=== PATIENT | male | born 1960 | race Caucasian/White ===

== ENCOUNTER → 2020-06-16 11:04 | Outpatient (CLI) | payer MEDICARE, SELFPAY ==
[2020-06-16 11:35] LABS: Absolute Lymphocyte Count 8.11 X10^3/uL (0.83-4.51); Absolute Neutrophil Count 7.3 X10^3/uL (2.0-7.7); Basophil# 0.05 X10^3/uL; Basophil% 0.3 % (0-1); Eosinophil# 0.15 X10^3/uL; Eosinophils% 0.9 % (0-5); Hematocrit 49.3 % (40-54); Lymphocyte # 8.11 X10^3/ul (4.0); Lymphocyte % 47.5 % (19-41); Mean Corp Hgb Conc 32.5 g/dL (32-36); Mean Corpuscular Hgb 30.4 pg (27.0-32.0); Mean Corpuscular Volume 93.7 fL (80-94); Mean Platelet Vol. 10.7 fl (6.2-12.0); Monocyte% 8.2 % (0-10); NRBC Flagged by Analyzer 0 % (0-5); Neutrophil # 7.32 X10^3/uL (2.7-7.7); Neutrophil % 42.9 % (47-70); POSITIVE DIFFERENTIAL YES; Platelet Count 451 K/mm3 (150-450); RBC Distribution Width CV 13.7 % (11.6-14.6); RBC Distribution Width SD 47.2 fl (35.1-43.9); Red Blood Count 5.26 M/mm3 (4.6-6.2); White Blood Count 17.1 K/mm3 (4.4-11.0)
[2020-06-16 11:53] LABS: Microalbumin,Random Urine 88.8 mg/L (NO RANGE EST.); Microalbumin:Creatinine Ratio 113.1 mg/g CRE (<30 mg/g CRE)
[2020-06-16 12:03] LABS: ALB/GLOB Ratio 0.8 RATIO (0.9-2.4); AST(SGOT) 53 U/L (15-37); Alanine Aminotransfer ALT/SGPT 88 U/L (16-61); Albumin, Serum 3.5 g/dL (3.2-5.0); Alkaline Phosphatase 97 U/L (45-117); Anion Gap 7 (5-15); BUN 11 mg/dL (7-18); BUN/Creat Ratio 10.7 RATIO (10-20); Calcium,Total 9.3 mg/dL (8.5-10.1); Chloride 99 mmol/L (98-107); Cholesterol 178 mg/dL (200); Creatinine, Serum 1.03 mg/dL (0.70-1.30); EST Glomerular Filtration Rate 79 mL/min (>60); Est Glom Filt Rate - Afr Amer 95 mL/min (>60); Globulin 4.3 g/dL (2.2-4.2); Glucose 316 mg/dL (74-106); Hemoglobin A1c 11.3 % (3.8-5.6); High Density Lipoprotein 37 mg/dL; Potassium 4.1 mmol/L (3.5-5.1); Protein, Total 7.8 g/dL (6.4-8.2); Sodium Level 133 mmol/L (136-145); Triglycerides 319 mg/dL; Very Low Density Lipoprotein 64 mg/dL (5-40)
[2020-06-16 12:06] LABS: Differential Indicated SCAN CRITERIA MET
[2020-06-16 12:13] LABS: Reactive Lymphocyte 1+
[2020-06-16 13:51] LABS: Vitamin D,25 Hydroxy 45.9 ng/mL
== END ==
PROVIDERS: Visit Provider Nurse Practitioner Family
DX: E11.9 Type 2 diabetes mellitus without complications (principal); I10 Essential (primary) hypertension; E55.9 Vitamin D deficiency, unspecified; E78.5 Hyperlipidemia, unspecified
CPT/HCPCS: 36415; 80053; 80061; 82043; 82306; 82570; 83036; 85025

== ENCOUNTER → 2021-08-05 15:39 | Outpatient (CLI) | payer MEDICARE, SELFPAY ==
--- NOTE | 2021-08-05 15:50 | CT_ITS ---
STUDY: LOW DOSE CT LUNG CANCER SCREENING REASON FOR EXAM: Male, 61 years old. 50-100 pack-year history. RADIATION DOSAGE (If Supplied By Facility): CTDIvol = ( 4.02 ) mGy, DLP = ( 139.44 ) mGycm TECHNIQUE: No contrast was administered. Low dose technique was utilized (average mAS-38 and kVp 120). 1.25 mm axial source images with a slice interval of 1.25-mm were reconstructed in lung windows. 2.5 mm axial source images with a slice interval of 2.5-mm were reconstructed in lung windows. 5.0 mm axial source images with a slice interval of 5.0-mm were reconstructed in soft tissue windows. Nodule measured using lung windows on PACS and/or independent workstation with automated measurement of minimum and maximum diameter. Nodule measurement reported as average diameter rounded to the nearest whole number. Growth is defined as an increase ins size of greater than 1.5 mm. COMPARISON: Chest, 02/13/2014. NODULES: Nodule #: 1 Density: Solid Lung location: Right upper lobe: 1.3 cm from pleura Location in series: Series Number: 2 Image: 99 Size - D1 x D2 mm: 2 x 2 mm: 2 mm average diameter Margin: Smooth Shape: No Calcification: No Fat: No Temporal comparison: None Nodule #: 2 Density: Solid Lung location: Right upper lobe: Pleural-based Location in series: Series Number: 2 Image: 107 Size - D1 x D2 mm: 3 x 3 mm: 3 mm average diameter Margin: Smooth Shape: Rounded Calcification: No Fat: No Temporal comparison: None Nodule #: 3 Density: Solid Lung location: Right lower lobe: Pleural-based Location in series: Series Number: 2 Image: 113 Size - D1 x D2 mm: 3 x 3 mm: 3 mm average diameter Margin: Smooth Shape: Rounded Calcification: No Fat: No Temporal comparison: None Nodule #: 4 Density: Solid Lung location: Right middle lobe: 0.6 cm from pleura Location in series: Series Number: 2 Image: 125 Size - D1 x D2 mm: 3 x 3 mm: 3 mm average diameter Margin: Smooth Shape: Round Calcification: No Fat: No Temporal comparison: None Total lung nodules (excluding granulomas): 4 Emphysema: Minimal emphysematous changes. There is linear scarring in the lingula. Endobronchial lesion: None Aorta: Minimal atherosclerotic changes without aneurysm. Coronary arteries: Marked coronary artery calcifications. Heart: Normal Pulmonary artery: Normal Mediastinal nodes: None Other chest and abdominal findings: Degenerative changes of the thoracic spine. CT/Low Dose CT Lung Screening IMPRESSION: Lung-RADS category 2 - Continue annual screening with LDCT in 12 months. IMPORTANT NOTES FOR USE: ACR Lung-RADS Version 1.1 Assessment Categories Release Date: 2018 Category: Coded 0-4 bases on nodule(s) with highest degree of suspicion. Negative screen is defined as categories 1 and 2; a positive screen is defined as categories 3 and 4. Category 3 and 4A nodules that are unchanged on interval CT should be coded as category 2, and individuals returned to screening in 12 months. Category 4X: Category 3 or 4 nodules with additional imaging findings that increase the suspicion of lung cancer, such as spiculation, GGN that doubles in size in 1 year, enlarged lymph notes, etc. Category Modifiers: S (significant finding unrelated to lung cancer) Electronically Signed: Solomon Florentino DO at 16:47 EDT Tel [phone], Service support ,
== END ==
DX: F17.210 Nicotine dependence, cigarettes, uncomplicated (principal)
CPT/HCPCS: 71271

== ENCOUNTER 2022-06-22 17:10 | Inpatient (IN) | payer MEDICARE, MEDICAID, SELFPAY ==
[2022-06-22] VITALS (12 sets, daily range): BP systolic 136–145; BP diastolic 62–78; PULSE 77–85; RESP 18–26; TEMP 35.8–36.9; O2SAT 88–98; BMI 41.1; BMI 45.2
--- NOTE | 2022-06-22 17:28 | EKG12_ITS ---
Test Reason : CP Blood Pressure : / mmHG Vent. Rate : 074 BPM Atrial Rate : 074 BPM P-R Int : 200 ms QRS Dur : 090 ms QT Int : 402 ms P-R-T Axes : 059 071 040 degrees QTc Int : 446 ms Normal sinus rhythm Normal ECG Confirmed by WAGNER CHOUDHARY, JACK ([id number]), video tape editor JUAN MCKEON ([id number]) on 06/24/2022 1:23:48 PM Referred By: CHAU Confirmed By:DANNA EDWARD MD
--- NOTE | 2022-06-22 17:30 | ED.VIS.CHEST ---
HPI History of Present Illness Chief Complaint: Chest Pain Detail of Chief Complaint: Chest pain and shortness of breath that started last evening. Informant: patient Narrative Narrative: Patient presents the emergency department complaint of chest discomfort that started last evening around midnight. Patient also felt very short of breath. [place] better when he sat up. He denies recent illness of fever or cough. He has not had the COVID-vaccine. Patient does have history of COPD but not on home oxygen. Patient has history of coronary artery disease with 9 cardiac stents. Patient describes a pressure in his chest that goes up the right side of his neck and into his right scapula. Patient thinks the pain is similar to pressure he had when he had his stents. He denies recent travel or surgery. No history of PE or DVT. [facility] Medical History (Updated 06/22/22 @ 19:[address] Silas Sneed, ) Anxiety and depression CAD (coronary artery disease) COPD (chronic obstructive pulmonary disease) Diabetes Hypertension Myocardial infarct, old Nicotine dependence Vitamin D deficiency Home Medications Hydroxyzine [Atarax] 25 mg PO BID PRN PRN Agitation 02/18/14 [History Last Taken 03/25/14] albuterol sulfate 90 mcg/actuation aerosol inhaler (Proventil HFA) 6.7 g IH PRN PRN Wheezing 02/18/14 [History Last Taken 03/25/14] aspirin 81 mg chewable tablet 81 mg PO DAILY@0800 02/18/14 [History Last Taken 03/25/14] atenolol 50 mg tablet 50 mg PO DAILY 02/18/14 [History Last Taken 03/25/14] cyclobenzaprine 10 mg tablet 5 mg PO DAILY 02/18/14 [History Last Taken 03/25/14] docusate sodium 100 mg capsule (DOK) 100 mg PO DAILY 02/18/14 [History Last Taken 03/25/14] hydrochlorothiazide 25 mg tablet 25 mg PO DAILY 02/18/14 [History Last Taken 03/25/14] lisinopril 40 mg tablet 40 mg PO DAILY 02/18/14 [History Last Taken 03/25/14] metformin 500 mg tablet 1,000 mg PO BID 02/18/14 [History Last Taken 03/25/14] nitroglycerin 0.4 mg sublingual tablet 0.4 mg sublingual Q5M PRN Chest Pain 02/18/14 [History Last Taken Unknown] potassium chloride 10 mEq tablet,extended release (Klor-Con) 20 meq PO DAILY 02/18/14 [History Last Taken 03/25/14] pravastatin 20 mg tablet 40 mg PO DAILY 02/18/14 [History Last Taken 03/25/14] quetiapine 300 mg tablet (Seroquel) 300 mg PO DAILY 02/18/14 [History Last Taken 03/25/14] clopidogrel 75 mg tablet 1 tab PO DAILY 07/07/17 [History Last Taken Unknown] budesonide-formoterol HFA 160 mcg-4.5 mcg/actuation aerosol inhaler (Symbicort) 2 puff inhalation BID 06/22/22 [History Last Taken Unknown] cholecalciferol (vitamin D3) 125 mcg (5,000 unit) tablet (Vitamin D3) 50,000 unit PO QWEEK 06/22/22 [History Last Taken Unknown] glimepiride 1 mg tablet 1 mg PO DAILY 06/22/22 [History Last Taken Unknown] Allergy/AdvReac Type Severity Reaction Status Date / Time No Known Allergies Allergy Verified 06/22/22 17:11 Family History (Updated 06/22/22 @ 19:[address] Tanvi Still MD) Father CAD (coronary artery disease) Hypertension Heart disease Myocardial infarction Fatal [place] 70. Brother CAD (coronary artery disease) Hypertension Heart disease Myocardial infarction [place] age 48. Mother Cancer Surgical History (Updated 06/22/22 @ 19:[address] Tanvi Still MD) History of splenectomy S/P urological surgery Stented coronary artery Social History (Updated 06/22/22 @ 19:[address] Tanvi Still MD) household members: none Smoking Status: Current every day smoker tobacco type: cigarettes ROS ROS ED Review of Systems ROS Unobtainable: other Constitutional Constitutional ED: Reports lethargy; Denies chills, fever(s), sweats or weight loss Eyes Eyes: Denies blurry vision, change in vision or diplopia ENT ENT ED: Denies rhinorrhea or sore throat Cardiovascular Cardiovascular: Reports chest pain; Denies orthopnea or racing heartbeat Respiratory/Chest Respiratory/Chest: Reports dyspnea and dyspnea on exertion; Denies cough, orthopnea or sputum Gastrointestinal Gastrointestinal: Denies abdominal pain, diarrhea, nausea or vomiting Genitourinary Genitourinary ED: Denies dysuria, hematuria or urinary frequency Musculoskeletal Musculoskeletal: Denies arthralgias, back pain, myalgias or neck pain Integumentary Denies abscess, Abrasions or rash Neurologic Neurologic: Denies headache(s) or weakness Psychiatric Psychiatric: Denies anxiety, depression or suicidal thoughts Endocrine Endocrinology: Denies polydipsia, polyphagia or polyuria Hematologic/Lymphatic Hematologic/Lymphatic: Denies easy bleeding, easy bruising or lymphadenopathy Allergic/Immunologic Allergic/Immunologic ED: Denies mouth swelling, tongue swelling or urticaria EXAM Physical Exam Const Vital Signs: 06/22/22 17:11 06/22/22 17:14 06/22/22 17:14 Temperature 96.5 F L Temperature Source Temporal Pulse Rate 85 80 Respiratory Rate 20 H 24 H Respiratory Effort Short of Breath Labored Accessory Muscle Use Nasal Flaring Respiratory Pattern Tachypnea Blood Pressure Blood Pressure Mean Pulse Ox 88 92 Oxygen Delivery Method Room Air Nasal Cannula Oxygen Flow Rate (L/min) 3 06/22/22 17:38 06/22/22 17:35 06/22/22 18:19 Temperature 97.5 F L Temperature Source Temporal Pulse Rate 77 82 Respiratory Rate 24 H 25 H Respiratory Effort Respiratory Pattern Normal Blood Pressure 136/62 H Blood Pressure Mean 86 Pulse Ox 92 92 Oxygen Delivery Method Nasal Cannula Room Air Oxygen Flow Rate (L/min) 3 06/22/22 19:03 06/22/22 19:06 Temperature 97.3 F L 97.3 F L Temperature Source Temporal Temporal Pulse Rate 83 84 Respiratory Rate 26 H 20 H Respiratory Effort Respiratory Pattern Blood Pressure 138/62 H 138/62 H Blood Pressure Mean 87 87 Pulse Ox 92 92 Oxygen Delivery Method Nasal Cannula Nasal Cannula Oxygen Flow Rate (L/min) 3 3 Positive well nourished and well developed General Appearance ED: well developed and NAD HEENT Reports TM's clear and moist mucous membranes normocephalic and atraumatic; Negative for trauma or tenderness Tympanic Membrane ED: Yes TM's clear Eyes PERRL and EOMs intact bilaterally General Eye ED: Negative for pale conjunctiva or scleral icterus Neck no lymphadenopathy, supple and no JVD General: Negative for tenderness Chest Wall inspection of chest normal and palpation of chest normal Chest: Negative for tenderness Resp Resp Narrative: Patient with faint expiratory wheezes bilaterally with diminished breath sounds bilaterally. Patient has tachypnea and mild conversational dyspnea. Effort and Inspection: Negative for respiratory distress or pain with movement Auscultation: rhonchi, wheezes and diminished lung sounds Cardio regular rate, regular rhythm, S1 normal heart sound, S2 normal heart sound and no murmurs Peripheral Pulses: pulses 2+ throughout GI normal to inspection, nondistended, normoactive bowel sounds, soft to palpation, non-tender, non-distended and no masses Back/Spine no CVA tenderness and no thoracic nor lumbar tenderness Extremity normal to inspection General Extremety ED: Negative for edema General Extremity: Negative for edema Neuro oriented x3, CN's II-XII intact bilaterally, no sensory deficits noted and gait normal Sensorium / Orientation: awake, alert, oriented to person, oriented to place and oriented to time Motor Exam: strength 5/5 throughout and strength abnormal Psych mental status grossly normal Skin no rashes or lesions noted and no wounds MDM MDM MDM Narrative Medical decision making narrative: IV line Arrival. Patient Was Given DuoNeb Aerosol As Well As Albuterol Aerosols. Patient Was Started on Solu-Medrol IV. Lab Work-Up Showed an Elevated White Count of 16.2. Chemistries Unremarkable. D-Dimer Was Normal. Troponin Was Normal. Chest X-Ray Was Unremarkable. COVID-19 Test Came Back Positive. This Point Patient Will Be Discussed with Hospitalist Evaluate Patient for Admission for COPD Exacerbation, COVID-19 Infection, and Hypoxemia Lab Data Labs: Laboratory Results - last 24 hr 06/22/22 06/22/22 06/22/22 17:15 17:15 17:15 WBC 16.2 H RBC 5.16 Hgb 16.4 Hct 47.6 MCV 92.2 MCH 31.8 MCHC 34.5 RDW Std Deviation 47.1 H RDW Coeff of Trevor 13.8 Plt Count 366 MPV 10.3 Immature Gran % (Auto) 0.300 Neut % (Auto) 50.7 Lymph % (Auto) 36.4 [place] % (Auto) 12.3 H Eos % (Auto) 0.1 Baso % (Auto) 0.2 Absolute Neuts (auto) 8.2 H Absolute Lymphs (auto) 5.89 H Nucleated RBC % 0 Differential Comment SCANNED Diff Path Review May foll D-Dimer Quant (PE/DVT) 0.30 Sodium 134 L Potassium 3.6 Chloride 96 L Carbon Dioxide 31.0 Anion Gap 7 BUN 9 Creatinine 0.93 Estim Creat Clear Calc 92.71 Est GFR (MDRD) Af Amer 107 Est GFR (MDRD) Non-Af 88 BUN/Creatinine Ratio 9.7 L Glucose 110 H Calcium 9.5 Troponin I High Sens 11 Radiography Chest X-Ray - ED: 1 View Diagnostic Testing: Clinical Impression(s) from Imaging Studies Chest X-Ray 06/22/22 18:10 IMPRESSION: Chronic changes at the lung bases without acute cardiopulmonary disease. Electronically Signed: Solomon Florentino DO at 18:25 EDT Reading Location ID and State: [address] [place] [address] Tel [phone], Service support , 1 view chest x-ray obtained interpreted by myself no acute disease process. Radiology in agreement. EKG Initial EKG: Attestation: I personally reviewed and interpreted this EKG as follows: Comments: Sinus rhythm with a ventricular rate of 74 bpm with no acute ST segment changes Discharge Plan Triage Chief Complaint: Chest Pain ED Provider: Silas Sneed Dx/Rx/DC Orders Clinical Impression: COPD exacerbation, Hypoxemia, COVID-19, History of coronary artery disease, Diabetes mellitus Prescriptions: No Action clopidogrel 75 MG tablet 1 tab PO DAILY glimepiride 1 mg Tablet 1 mg PO DAILY budesonide-formoterol [Symbicort] 160-4.5 mcg/actuation Hfa Aerosol Inhaler 2 puff INHALATION BID cholecalciferol (vitamin D3) [Vitamin D3] 125 mcg (5,000 unit) Tablet 50,000 unit PO QWEEK cyclobenzaprine 10 MG tablet 5 mg PO DAILY metformin 500 MG tablet 1,000 mg PO BID quetiapine [Seroquel] 300 MG tablet 300 mg PO DAILY potassium chloride [Klor-Con 10] 10 MEQ tablet extended release 20 meq PO DAILY nitroglycerin 0.4 MG tablet 0.4 mg sublingual Q5M PRN (Reason: Chest Pain) docusate sodium [DOK] 100 MG capsule 100 mg PO DAILY aspirin 81 MG tablet,chewable 81 mg PO DAILY@0800 pravastatin 20 MG tablet 40 mg PO DAILY hydrochlorothiazide 25 MG tablet 25 mg PO DAILY albuterol sulfate [Proventil HFA] 6.7 GM HFA aerosol inhaler 6.7 g IH PRN PRN (Reason: Wheezing) lisinopril 40 MG tablet 40 mg PO DAILY atenolol 50 MG tablet 50 mg PO DAILY Hydroxyzine [Atarax] 25 MG tablet 25 mg PO BID PRN PRN (Reason: Agitation) Primary Care Provider: Medical Brooklynn Cantu Referrals: [facility] Brooklynn Cantu [Primary Care Provider] - Disposition Disposition: Acute Care Hospital [facility]
[2022-06-22] MEDS: Ipratropium/Albuterol Sulfate 3 ML AMPUL.NEB INHALATION ×2 (17:35→21:47)
[2022-06-22] MEDS: Albuterol 2.5 MG/3 ML VIAL.NEB. INHALATION ×2 (17:40→17:48)
[2022-06-22 17:47] LABS: Absolute Lymphocyte Count 5.89 X10^3/uL (0.83-4.51); Absolute Neutrophil Count 8.2 X10^3/uL (2.0-7.7); Basophil# 0.04 X10^3/uL; Basophil% 0.2 % (0-1); Eosinophil# 0.01 X10^3/uL; Eosinophils% 0.1 % (0-5); Hematocrit 47.6 % (40-54); Hemoglobin 16.4 g/dL (13.0-16.5); Lymphocyte # 5.89 X10^3/ul (0.83-4.51); Lymphocyte % 36.4 % (19-41); Mean Corp Hgb Conc 34.5 g/dL (32-36); Mean Corpuscular Hgb 31.8 pg (27.0-32.0); Mean Corpuscular Volume 92.2 fL (80-94); Mean Platelet Vol. 10.3 fl (6.2-12.0); Monocyte# 1.99 X10^3/uL; Monocyte% 12.3 % (0-10); NRBC Flagged by Analyzer 0 % (0-5); Neutrophil # 8.21 X10^3/uL (2.7-7.7); Neutrophil % 50.7 % (47-70); POSITIVE DIFFERENTIAL YES; POSITIVE MORPHOLOGY YES; Platelet Count 366 K/mm3 (150-450); RBC Distribution Width CV 13.8 % (11.6-14.6); RBC Distribution Width SD 47.1 fl (35.1-43.9); Red Blood Count 5.16 M/mm3 (4.6-6.2); White Blood Count 16.2 K/mm3 (4.4-11.0)
[2022-06-22] MEDS: Aspirin 81 MG TAB.CHEW 324 MG PO (17:57)
[2022-06-22 17:58] LABS: Differential Indicated SCAN CRITERIA MET
[2022-06-22] MEDS: MethylPREDNISolone 125 MG/2 ML Vial IV (17:59)
[2022-06-22] MEDS: 0.9% Normal Saline 1,000 ML 150 ML IV (17:59)
[2022-06-22 18:06] LABS: Anion Gap 7 (5-15); BUN 9 mg/dL (7-18); BUN/Creat Ratio 9.7 RATIO (10-20); Calcium,Total 9.5 mg/dL (8.5-10.1); Chloride 96 mmol/L (98-107); Creatinine, Serum 0.93 mg/dL (0.70-1.30); EST Glomerular Filtration Rate 88 mL/min (>60); Est Glom Filt Rate - Afr Amer 107 mL/min (>60); Estimated Creatinine Clearance 92.71 ml/min; Glucose 110 mg/dL (74-106); Potassium 3.6 mmol/L (3.5-5.1); Sodium Level 134 mmol/L (136-145); Troponin-I HS (w/2H Reflex) 11 pg/mL (3.0-78.0)
--- NOTE | 2022-06-22 18:10 | RAD_ITS ---
STUDY: X-RAY CHEST REASON FOR EXAM: Male, 62 years old. Chest pain. TECHNIQUE: Single AP portable view of the chest. COMPARISON: 02/13/2014. CT of the chest, 08/05/2021. FINDINGS: The lungs are well expanded. There is chronic interstitial coarsening with stable scarring/atelectasis at the lung bases. No new mass or infiltrate. There is no demonstrated pleural abnormality. Normal size heart. Normal mediastinum and mae. Normal visualized pulmonary arteries. There is atherosclerotic calcification of the aortic arch with tortuosity. Mild degenerative changes dextroscoliosis of the thoracic spine. Normal visualized ribs, clavicles, and shoulders. There is no demonstrated abnormality of the visualized soft tissue structures of the upper abdomen. RAD/Chest 1 View (Portable) IMPRESSION: Chronic changes at the lung bases without acute cardiopulmonary disease. Electronically Signed: Solomon Florentino DO at 18:25 EDT ,
[2022-06-22 18:20] LABS: Differential Comment SCANNED
--- NOTE | 2022-06-22 19:08 | PCM.HP.STD ---
HPI - General General Date of Admission: 06/22/22 Date of Service: 06/22/22 Chief Complaint: Chest pain HPI Narrative The patient is a 62 y/o M w/ PMHx: Diabetes mellitus type II, Morbid obesity, COPD, Tobacco use, HTN, HLD, Anxiety and Depression, CAD s/p PCI proximal LAD and distal RCA 10/2011 who presents to the [facility] ED on 06/22/22 with history of onset chest discomfort evening prior to proximately midnight as well as progressively worsening dyspnea with some improvement upon awakening with no recent illness, fever, cough however he had recurrent chest discomfort described as a pressure on the right side of his chest with radiation up to his neck and his right scapula which is reportedly similar to when he had his stents remotely prompting eventual ED evaluation. Patient does not routinely use oxygen therapy. He is not vaccinated against COVID nor is any of his immediate family. He denies anyone specifically being ill around him. He notes only mild cough with no productive sputum and dyspnea sensation as well as wheezing. He denies any sore throat, headache, nausea, emesis, abdominal pain or cramping, diarrhea. He did report that when he had the chest discomfort it was rated 10 out of 10 in severity but alleviated quickly and currently denies any chest pain upon evaluation. Work-up in the ED included T96.5, heart rate 85, BP 136/62, respiratory rate 20-26, initially 88% on room air eventually requiring 3 L nasal cannula to maintain 92% oxygenation, CBC with WC 16.2, hemoglobin 16.4, platelet 366 with left shift and lymphocytosis, D-dimer 0.30, BMP with sodium 134, chloride 96, glucose 110, troponin 11, chest x-ray with chronic changes at the lung bases with no acute cardiopulmonary findings otherwise, rapid SARS COVID antigen positive, EKG with sinus rhythm with no acute evidence of ischemia. In the ED patient administered aspirin 324 mg p.o. x1, Decadron 6 mg p.o. x1, DuoNeb therapy as well as nitroglycerin and normal saline. [facility] Medical History (Updated 06/22/22 @ 19:[address] Tanvi Still MD) Anxiety and depression CAD (coronary artery disease) COPD (chronic obstructive pulmonary disease) Diabetes mellitus, type 2 Hypertension Myocardial infarct, old Nicotine dependence Vitamin D deficiency Home Medications albuterol sulfate 90 mcg/actuation aerosol inhaler (Proventil HFA) 6.7 g IH PRN PRN Wheezing 02/18/14 [History Last Taken 06/22/22] aspirin 81 mg chewable tablet 81 mg PO DAILY@0800 HEALTH 02/18/14 [History Last Taken 06/22/22] atenolol 50 mg tablet 50 mg PO BID BP 02/18/14 [History Last Taken 06/22/22] docusate sodium 100 mg capsule (DOK) 100 mg PO DAILY PRN Constipation 02/18/14 [History Last Taken 03/25/14] hydrochlorothiazide 25 mg tablet 25 mg PO DAILY FLUID 02/18/14 [History Last Taken 06/22/22] lisinopril 40 mg tablet 40 mg PO DAILY BP 02/18/14 [History Last Taken 06/21/22] nitroglycerin 0.4 mg sublingual tablet 0.4 mg sublingual Q5M PRN Chest Pain 02/18/14 [History Last Taken 06/22/22] potassium chloride 10 mEq tablet,extended release (Klor-Con) 20 meq PO DAILY SUPPLEMENT 02/18/14 [History Last Taken 06/22/22] quetiapine 300 mg tablet (Seroquel) 300 mg PO QHS MOOD 02/18/14 [History Last Taken 06/21/22] clopidogrel 75 mg tablet 75 mg PO DAILY BLOOD THINNER 07/07/17 [History Last Taken 06/22/22] budesonide-formoterol HFA 160 mcg-4.5 mcg/actuation aerosol inhaler (Symbicort) 2 puff inhalation BID COPD 06/22/22 [History Last Taken 06/22/22] cholecalciferol (vitamin D3) 125 mcg (5,000 unit) tablet (Vitamin D3) 50,000 unit PO SA SUPPLEMENT 06/22/22 [History Last Taken 06/19/22] cyclobenzaprine 5 mg tablet 5 mg PO DAILY PRN Spasms 06/22/22 [History Last Taken Unknown] glimepiride 1 mg tablet 1 mg PO DAILY DM 06/22/22 [History Last Taken 06/22/22] hydroxyzine HCl 25 mg tablet 25 mg PO QHS SLEEP 06/22/22 [History Last Taken 06/21/22] metformin 1,000 mg tablet 1,000 mg PO BID DM 06/22/22 [History Last Taken 06/22/22] pravastatin 40 mg tablet 40 mg PO QHS CHOLESTEROL 06/22/22 [History Last Taken 06/21/22] Allergy/AdvReac Type Severity Reaction Status Date / Time No Known Allergies Allergy Verified 06/22/22 17:11 Family History (Updated 06/22/22 @ 19:[address] Tanvi Still MD) Father CAD (coronary artery disease) Hypertension Heart disease Myocardial infarction Fatal CA age 70. Brother CAD (coronary artery disease) Hypertension Heart disease Myocardial infarction CA age 48. Mother Cancer Surgical History (Updated 06/22/22 @ 19:[address] Tanvi Still MD) History of splenectomy S/P urological surgery Stented coronary artery Social History (Updated 06/22/22 @ 20:[address] Tanvi Still MD) household members: none Smoking Status: Current every day smoker tobacco type: cigarettes Smoking packs per day: 0.5 Smoking cigarettes per day: 10.0 Years smoked: 50 Smoking pack-years: 25.00 alcohol intake: never substance use type: does not use ROS ROS Narrative Admission Review of Systems: CONSTITUTIONAL: No weight loss, fever, chills, + weakness or fatigue. HEENT: Eyes: No visual loss, blurred vision, double vision or yellow sclerae. Ears, Nose, Throat: No hearing loss, sneezing, congestion, runny nose or sore throat. SKIN: No rash or itching, lesions, wounds. CARDIOVASCULAR: + chest pain, chest pressure or chest discomfort, No palpitations, edema, orthopnea, syncopal events. RESPIRATORY: + shortness of breath, cough without marked sputum, wheezing, No hemoptysis. GASTROINTESTINAL: No anorexia, nausea, vomiting or diarrhea, abdominal pain, melena, BRBPR. GENITOURINARY: No dysuria, frequency, urgency or retention. NEUROLOGICAL: No headache, dizziness, syncope, paralysis, ataxia, numbness or tingling in the extremities, focal weakness, change in bowel or bladder control, seizure. MUSCULOSKELETAL: + muscle, back pain, joint pain or stiffness. HEMATOLOGIC: + anemia, bleeding or bruising. LYMPHATICS: No enlarged nodes. No history of splenectomy. PSYCHIATRIC: + history of depression or anxiety. ENDOCRINOLOGIC: No reports of sweating, cold or heat intolerance. No polyuria or polydipsia. ALLERGIES: No history of asthma, hives, eczema or rhinitis. Vital Signs Vital Signs Vital Signs: 06/22/22 17:11 06/22/22 17:14 06/22/22 17:14 Temperature 96.5 F L Temperature Source Temporal Pulse Rate 85 80 Respiratory Rate 20 H 24 H Respiratory Effort Short of Breath Labored Accessory Muscle Use Nasal Flaring Respiratory Pattern Tachypnea Blood Pressure Blood Pressure Mean Pulse Ox 88 92 Oxygen Delivery Method Room Air Nasal Cannula Oxygen Flow Rate (L/min) 3 06/22/22 17:38 06/22/22 17:35 06/22/22 18:19 Temperature 97.5 F L Temperature Source Temporal Pulse Rate 77 82 Respiratory Rate 24 H 25 H Respiratory Effort Respiratory Pattern Normal Blood Pressure 136/62 H Blood Pressure Mean 86 Pulse Ox 92 92 Oxygen Delivery Method Nasal Cannula Room Air Oxygen Flow Rate (L/min) 3 06/22/22 19:03 06/22/22 19:06 Temperature 97.3 F L 97.3 F L Temperature Source Temporal Temporal Pulse Rate 83 84 Respiratory Rate 26 H 20 H Respiratory Effort Respiratory Pattern Blood Pressure 138/62 H 138/62 H Blood Pressure Mean 87 87 Pulse Ox 92 92 Oxygen Delivery Method Nasal Cannula Nasal Cannula Oxygen Flow Rate (L/min) 3 3 Weight Weight: 303 lb 9.224 oz Body Mass Index (BMI) 41.1 Physical Exam Narrative Physical Examination: General: Awake, alert, oriented x 3 and cooperative, seated upright in the ED bed, fatigued appearing otherwise no acute distress Skin: Normal color, normal turgor, no icterus, no cyanosis. HEENT: AT/NC, EOMI, PERRLA, mildly dry MM, no carotid bruits or JVD noted. Lungs: Significantly diffusely diminished, tight, expiratory wheezing, mildly increased respiratory rate but no distress, no rales or rhonchi. Heart: Regular rate and rhythm; no gallop, rub audible. Abdomen: Soft, morbidly obese, NTTP, ND, distant normal BS, no HSM. Extremities: No cyanosis, clubbing, or edema. Neurological: Patient awake, alert, oriented as noted, cognitive function intact; pupils equally reactive to light and accommodation, cranial nerves II-XII grossly normal, moving all 4 extremities, no focal deficits, strength moderately to severely global decrease secondary to acute presentation. Psychiatric: Affect appears fatigued otherwise normal, no acute evidence of depressive or anxiety feelings. Results Lab / Micro Data Result Diagrams: 06/22/22 17:15 06/22/22 17:15 Labs: Laboratory Results - last 24 hr 06/22/22 17:15: WBC 16.2 H, RBC 5.16, Hgb 16.4, Hct 47.6, MCV 92.2, MCH 31.8, MCHC 34.5, RDW Std Deviation 47.1 H, RDW Coeff of Trevor 13.8, Plt Count 366, MPV 10.3, Immature Gran % (Auto) 0.300, Neut % (Auto) 50.7, Lymph % (Auto) 36.4, Peach % (Auto) 12.3 H, Eos % (Auto) 0.1, Baso % (Auto) 0.2, Absolute Neuts (auto) 8.2 H, Absolute Lymphs (auto) 5.89 H, Nucleated RBC % 0, Differential Comment SCANNED, Diff Path Review February06/22/22 17:15: D-Dimer Quant (PE/DVT) 0.30 06/22/22 17:15: Sodium 134 L, Potassium 3.6, Chloride 96 L, Carbon Dioxide 31.0, Anion Gap 7, BUN 9, Creatinine 0.93, Estim Creat Clear Calc 92.71, Est GFR (MDRD) Af Amer 107, Est GFR (MDRD) Non-Af 88, BUN/Creatinine Ratio 9.7 L, Glucose 110 H, Calcium 9.5, Troponin I High Sens 11 Micro: Microbiology 06/22/22 18:10 Nasal Secretion SARS-CoV-2 & FLU Antigen (Rapid) - Final SARS-CoV-2 (COVID 19) Radiology Impression Chest X-Ray 06/22/22 18:10 IMPRESSION: Chronic changes at the lung bases without acute cardiopulmonary disease. Electronically Signed: Solomon Florentino DO at 18:25 EDT Reading Location ID and State: [facility] / [place] Tel [phone], Service support , Assessment & Plan Assessment/Plan (1) COPD exacerbation: (2) Hypoxemia: (3) COVID-19: PLAN: Plan The patient is a 62 y/o M w/ PMHx: Diabetes mellitus type II, Morbid obesity, COPD, Tobacco use, HTN, HLD, Anxiety and Depression, CAD s/p PCI proximal LAD and distal RCA 10/2011 who presents to the [facility] ED on 06/22/22 with history of onset chest discomfort evening prior to proximately midnight as well as progressively worsening dyspnea with some improvement upon awakening with no recent illness, fever, cough however he had recurrent chest discomfort described as a pressure on the right side of his chest with radiation up to his neck and his right scapula which is reportedly similar to when he had his stents remotely prompting eventual ED evaluation. #1. Acute on Chronic COPD Exacerbation secondary to concurrent Acute Viral Syndrome, COVID-19 w/ associated Acute Hypoxia: Will admit to the PCU, maintain on COVID precautions, will maintain on oxygen with wean as tolerated to room air, PRN albuterol, HOB, IS parameters w/ pending sputum cultures, respiratory viral panel and urine antigens, will obtain procalcitonin, CRP, CPK, Ferritin, LDH, cycle troponin given history and obtain BNP, continue supportive care including q 2 hour turning including prone given no prone bed availability and judicious hydration, closely monitor for worsening status for ARDS and multiorgan failure, will initiate and continue IV decadron x 10 doses, given presentation will also initiate IV remdesivir but defer to discretion of Infectious disease. If respiratory status worsens and patient requires airvo or BIPAP transition will initiate barcitinib regimen additionally with ID involvement. #2. Chest Pain: EKG in ED with sinus rhythm with no acute evidence of skin, CXR w/ chronic changes with no acute cardiopulmonary, initial trop [address] on a monitored bed to assure no acute myocardial infarction with serial cardiac enzymes and EKGs. Likely associate with acute presentation but to be cautious we will continue closely monitor. FLP in AM. Magnesium level requested. ASA, NG, morphine. #3. Diabetes mellitus type II: Hold oral home regimen, ADA diet, accu checks w/ ISS. #4. CAD: Status post PCI proximal LAD and distal RCA 10/2011, continue aspirin, Plavix, atenolol, lisinopril, statin therapy with hold parameters as needed. #5. Hypertension: Continue home regimen including lisinopril, atenolol, hydrochlorothiazide with hold parameters as needed, PRN hydralazine. #6. Hyperlipidemia: Continue home statin regimen. AM FLP. #7. Tobacco Abuse: Encouraged cessation, inpatient consultation per RT, NR if desired. #8. Anxiety and depression: We will continue patient home Seroquel and hydroxyzine regimen. #9. Morbid Obesity: Weight loss and lifestyle changes encouraged, nutrition consulted. #10. DVT prophylaxis: SCDs, Lovenox. #11. CODE status: Patient does not have healthcare power of tax associate attorney nor living will in place. Discussed CODE status at length including difference between FULL code, DNR-CCA and DNR-CC status. Following discussions about the differences in these status, requested Full Code status. Amenable to antiviral regimen. Advanced Care Planning Face to Face Time: 16 minutes. Charges/Coding Visit Charges Inpatient E&M: 69891 Init Hosp L3 Procedures Hospitalists Procedures: 03854 Advncd Care Plan 30 Min
[2022-06-22 19:43] LABS: Reflex Troponin-HS? (from REC) Y
[2022-06-22 19:49] LABS: BNP,B-Type NATRIURETIC PEPTIDE 11.4 pg/mL (0-100)
[2022-06-22 19:55] LABS: AST(SGOT) 46 U/L (15-37); Alanine Aminotransfer ALT/SGPT 89 U/L (16-61); Albumin, Serum 3.6 g/dL (3.2-5.0); Alkaline Phosphatase 46 U/L (45-117); Bilirubin, Direct 0.35 mg/dL (0.00-0.30); Ferritin 254 ng/mL (26-388); Globulin 4.7 g/dL (2.2-4.2); LDH 252 U/L (87-241); Magnesium 1.7 mg/dL (1.6-2.6); Protein, Total 8.3 g/dL (6.4-8.2)
[2022-06-22 20:44] LABS: Troponin-I HS 10 pg/mL (3.0-78.0)
[2022-06-22] MEDS: 0.9% Normal Saline 1,000 ML 100 ML IV (22:34)
[2022-06-22] MEDS: dexAMETHasone 10 MG/ML Vial 6 MG IV (22:35)
[2022-06-22] MEDS: Enoxaparin 40 MG/0.4 ML Syringe SC (22:35)
[2022-06-22] MEDS: Pravastatin 40 MG Tablet PO (22:36)
[2022-06-22] MEDS: Insulin Lispro 100 UNIT/ML INSULN.PEN SC (22:48)
[2022-06-22 23:15] LABS: Bedside Glucose 155 mg/dL (74-106)
[2022-06-23] VITALS (14 sets, daily range): BP systolic 109–151; BP diastolic 71–82; PULSE 71–90; RESP 16–22; TEMP 36.4–36.9; O2SAT 92–96
[2022-06-23 01:44] LABS: Absolute Lymphocyte Count 2.11 X10^3/uL (0.83-4.51); Absolute Neutrophil Count 7.3 X10^3/uL (2.0-7.7); Basophil# 0.02 X10^3/uL; Basophil% 0.2 % (0-1); Hematocrit 44.6 % (40-54); Hemoglobin 15.1 g/dL (13.0-16.5); Lymphocyte # 2.11 X10^3/ul (0.83-4.51); Lymphocyte % 21.6 % (19-41); Mean Corp Hgb Conc 33.9 g/dL (32-36); Mean Corpuscular Hgb 30.9 pg (27.0-32.0); Mean Corpuscular Volume 91.2 fL (80-94); Mean Platelet Vol. 10.6 fl (6.2-12.0); Monocyte# 0.28 X10^3/uL; Monocyte% 2.9 % (0-10); NRBC Flagged by Analyzer 0 % (0-5); Neutrophil # 7.34 X10^3/uL (2.7-7.7); Neutrophil % 74.9 % (47-70); Platelet Count 326 K/mm3 (150-450); RBC Distribution Width CV 13.8 % (11.6-14.6); RBC Distribution Width SD 46.5 fl (35.1-43.9); Red Blood Count 4.89 M/mm3 (4.6-6.2); White Blood Count 9.8 K/mm3 (4.4-11.0)
[2022-06-23 02:40] LABS: Troponin-I HS 8 pg/mL (3.0-78.0)
[2022-06-23 02:55] LABS: ALB/GLOB Ratio 0.7 RATIO (0.9-2.4); AST(SGOT) 34 U/L (15-37); Alanine Aminotransfer ALT/SGPT 73 U/L (16-61); Alkaline Phosphatase 42 U/L (45-117); Anion Gap 9 (5-15); BUN 9 mg/dL (7-18); BUN/Creat Ratio 12.1 RATIO (10-20); Calcium,Total 8.6 mg/dL (8.5-10.1); Chloride 100 mmol/L (98-107); Cholesterol 107 mg/dL (200); Creatinine, Serum 0.74 mg/dL (0.70-1.30); EST Glomerular Filtration Rate 114 mL/min (>60); Est Glom Filt Rate - Afr Amer 138 mL/min (>60); Globulin 4.4 g/dL (2.2-4.2); Glucose 200 mg/dL (74-106); High Density Lipoprotein 32 mg/dL; Potassium 3.6 mmol/L (3.5-5.1); Protein, Total 7.4 g/dL (6.4-8.2); Sodium Level 135 mmol/L (136-145); Triglycerides 66 mg/dL; Very Low Density Lipoprotein 13 mg/dL (5-40)
[2022-06-23] MEDS: Insulin Lispro 100 UNIT/ML INSULN.PEN SC ×3 (06:58→16:49)
[2022-06-23 07:20] LABS: Bedside Glucose 161 mg/dL (74-106)
[2022-06-23] MEDS: Ipratropium/Albuterol Sulfate 3 ML AMPUL.NEB INHALATION ×4 (07:38→20:17)
[2022-06-23] MEDS: Aspirin 81 MG TAB.CHEW PO (08:35)
[2022-06-23] MEDS: cycloBENZAPRine HCl 5 MG TABLET PO (08:36)
[2022-06-23] MEDS: hydroCHLOROthiazide 25 MG Tablet PO (08:36)
[2022-06-23] MEDS: Potassium Chloride Oral Tablet 20 MEQ PO (08:36)
[2022-06-23] MEDS: Atenolol 50 MG Tablet PO (08:36)
[2022-06-23] MEDS: Lisinopril 40 MG Tablet PO (08:37)
[2022-06-23] MEDS: QUEtiapine 100 MG Tablet 300 MG PO (08:37)
[2022-06-23] MEDS: dexAMETHasone 10 MG/ML Vial 6 MG IV (08:37)
[2022-06-23] MEDS: Clopidogrel Bisulfate 75 MG Tablet PO (08:37)
[2022-06-23] MEDS: 0.9% Saline Lock 10 ML Syringe IV ×2 (08:38→16:51)
[2022-06-23] MEDS: Enoxaparin 40 MG/0.4 ML Syringe SC ×2 (08:46→22:04)
--- NOTE | 2022-06-23 12:50 | CASEMGMT ---
RN PRASANTH called patient in room for initial transition planning/care coordination assessment. RN PRASANTH introduced self and role at [facility]. Patient alert and oriented. Patient willing to participate in assessment and is able to answer all questions appropriately. Care providers, pharmacy, and demographics verified. Patient wishes to discharge home, denies need for home health at this time. Patient states he has no further needs or concerns at this time. CM to follow for discharge planning needs that may arise. PCP: Brooklynn Michel Specialists: none Preferred Pharmacy: [facility] Insurance: [facility] Prescription Benefit: yes Living Will/HPOA: none LNOK: son, mother Living Arrangements: Patient states he lives alone in a first floor apartment with no steps to enter. Patient states he is independent at home. Transportation: self, son DME/HHC: Patient denies DME in the home. Patient denies previous HHC or SNF. Will monitor patient for oxygen at discharge. No preferences on DME. Disposition Plan: Patient to discharge home with family support and follow-u plans in place. Leelee GAYTAN, RN, CM
[2022-06-23 13:10] LABS: Bedside Glucose 193 mg/dL (74-106)
--- NOTE | 2022-06-23 13:38 | PCM.PN.HOSP ---
Subjective Subjective States approximately 50 to 60% better since he came in yesterday. He indicates he is finally been able to eat. He reports that he is having more fatigue than typical and sleeping a lot today. Chest pain has resolved. Nausea has resolved. Objective Data Objective Data Vital Signs: Vital Signs Temp Pulse Resp BP Pulse Ox O2 Del Method O2 Flow Rate 98.5 F 89 16 151/73 H 92 Nasal Cannula 3 06/23/22 08:35 06/23/22 11:17 06/23/22 11:17 06/23/22 08:35 06/23/22 08:35 06/23/22 13:29 06/23/22 13:29 Oxygen Flow Rate (L/min) 3 Oxygen Delivery Method Nasal Cannula Weight: 135 kg Body Mass Index (BMI) 45.2 Intake & Output: Intake and Output for Last 24 Hours 06/21/22 06/22/22 06/23/22 23:59 23:59 23:59 Intake Total 1065 / 1465 1974 / 1974 Output Total 500 / 500 Balance 1065 / 965 1475 / 1475 Lab / Micro Data Result Diagrams: 06/23/22 01:35 06/23/22 01:35 Labs: Laboratory Results - last 24 hr 06/22/22 17:15: WBC 16.2 H, RBC 5.16, Hgb 16.4, Hct 47.6, MCV 92.2, MCH 31.8, MCHC 34.5, RDW Std Deviation 47.1 H, RDW Coeff of Trevor 13.8, Plt Count 366, MPV 10.3, Immature Gran % (Auto) 0.300, Neut % (Auto) 50.7, Lymph % (Auto) 36.4, Carson % (Auto) 12.3 H, Eos % (Auto) 0.1, Baso % (Auto) 0.2, Absolute Neuts (auto) 8.2 H, Absolute Lymphs (auto) 5.89 H, Nucleated RBC % 0, Differential Comment SCANNED, Diff Path Review February06/22/22 17:15: D-Dimer Quant (PE/DVT) 0.30 06/22/22 17:15: Sodium 134 L, Potassium 3.6, Chloride 96 L, Carbon Dioxide 31.0, Anion Gap 7, BUN 9, Creatinine 0.93, Estim Creat Clear Calc 92.71, Est GFR (MDRD) Af Amer 107, Est GFR (MDRD) Non-Af 88, BUN/Creatinine Ratio 9.7 L, Glucose 110 H, Calcium 9.5, Troponin I High Sens 11 06/22/22 17:15: B-Natriuretic Peptide 11.4 06/22/22 17:15: Magnesium 1.7, Ferritin 254, Total Bilirubin 0.90, Direct Bilirubin 0.35 H, AST 46 H, ALT 89 H, Alkaline Phosphatase 46, Lactate Dehydrogenase 252 H, C-React Prot Ext Range 44.70 H, Total Protein 8.3 H, Albumin 3.6, Globulin 4.7 H 06/22/22 17:15: Procalcitonin 0.10 H 06/22/22 20:20: Troponin I High Sens 10 06/22/22 22:43: POC Glucose 155 H 06/23/22 01:35: WBC 9.8, RBC 4.89, Hgb 15.1, Hct 44.6, MCV 91.2, MCH 30.9, MCHC 33.9, RDW Std Deviation 46.5 H, RDW Coeff of Trevor 13.8, Plt Count 326, MPV 10.6, Immature Gran % (Auto) 0.400, Neut % (Auto) 74.9 H, Lymph % (Auto) 21.6, Carson % (Auto) 2.9, Eos % (Auto) 0.0, Baso % (Auto) 0.2, Absolute Neuts (auto) 7.3, Absolute Lymphs (auto) 2.11, Nucleated RBC % 0 06/23/22 01:35: Sodium 135 L, Potassium 3.6, Chloride 100, Carbon Dioxide 26.0, Anion Gap 9, BUN 9, Creatinine 0.74, Estim Creat Clear Calc 102.70, Est GFR (MDRD) Af Amer 138, Est GFR (MDRD) Non-Af 114, BUN/Creatinine Ratio 12.1, Glucose 200 H, Calcium 8.6, Total Bilirubin 0.40, AST 34, ALT 73 H, Alkaline Phosphatase 42 L, Total Protein 7.4, Albumin 3.0 L, Globulin 4.4 H, Albumin/Globulin Ratio 0.7 L, Triglycerides 66, Cholesterol 107, LDL Cholesterol 62, VLDL Cholesterol 13, HDL Cholesterol 32 L 06/23/22 01:35: Troponin I High Sens 8 06/23/22 06:57: POC Glucose 161 H 06/23/22 11:20: POC Glucose 193 H Micro: Microbiology 06/23/22 00:00 Urine, Clean Catch Streptococcus pneumoniae Antigen (M - Final 06/23/22 00:00 Urine, Clean Catch Legionella Antigen - Final 06/22/22 21:55 Mucosa - Nasopharyngeal Respiratory Panel (PCR) - Final 06/22/22 18:10 Nasal Secretion SARS-CoV-2 & FLU Antigen (Rapid) - Final SARS-CoV-2 (COVID 19) Radiography Diagnostic Testing: Radiology Impression Chest X-Ray 06/22/22 18:10 IMPRESSION: Chronic changes at the lung bases without acute cardiopulmonary disease. Electronically Signed: Solomon Florentino DO at 18:25 EDT Reading Location ID and State: [facility] / [place] Tel [phone], Service support , Physical Exam Const alert, oriented x3, no apparent distress and well nourished Constitutional Narrative: Morbidly obese, white upper middle-aged male sitting in bed watching television, appears comfortable, nontoxic currently on 3 L nasal cannula HEENT head/scalp atraumatic HEENT Narrative: Because membranes are dry, dentition is fair, no thrush, Mallampati 3 Mouth: dry mucous membranes Resp normal respiratory effort, no retractions and no use of accessory muscles Resp Narrative: Scattered end expiratory wheezing with few scattered crackles Auscultation: crackles and wheezes; Negative for rhonchi Cardio regular rate, regular rhythm, S1 normal heart sound, S2 normal heart sound, no murmurs, no rub, no gallops, no clicks and no JVD GI normal to inspection, nondistended, normoactive bowel sounds, soft to palpation and non-tender Extremity no clubbing, cyanosis or edema Extremity Narrative: 2+ pedal pulses Neuro oriented x3, moves all extremities and no focal motor deficits Speech: speech normal Assessment & Plan Assessment/Plan (1) COPD exacerbation: (2) Hypoxemia: (3) COVID-19: PLAN: Plan Acute COVID-19 infection -Positive test in the emergency department on admission -Not back to needed -Continue Decadron day 2 of 10 -Continue remdesivir day 2 of 5 -Supportive care -Patient is currently on 3 L nasal cannula--> wean as able -Chest x-ray on admission is overall unremarkable -We will utilize diuretics as needed -Avoid aggressive hydration -CRP elevated to 44.7/LDH 252 -Procalcitonin is 0.10 Acute exacerbation of COPD -Likely related to acute COVID-19 infection -Not a candidate for any biologic therapy -Continue steroids with Decadron -Aggressive pulmonary toilet -I-S/Pep therapy -Respiratory panel is negative -Strep pneumo and Legionella antigens are negative -Currently on 3 L nasal cannula with an SPO2 of 92 to 96% -At baseline is not on any supplemental oxygen Chest pain -EKG unremarkable -Cardiac enzymes cycled and negative -Cholesterol obtained and control is good with an LDL of 62 and a total cholesterol of 106 -Likely not cardiac in nature and more related to COPD exacerbation/COVID-19 infection DM-2 -Anticipate steroid-induced hyperglycemia -Hold home oral agents in Clement right metformin neck-sliding scale insulin -May need scheduled Lantus depending on blood sugar is -Continue to monitor BGT's -Diabetic diet CAD/HTN/HPL -History of PCI to proximal LAD and distal RCA in 2011 -Continue aspirin -Continue Plavix -Continue atenolol -Continue lisinopril -Continue statin Tobacco abuse -Encourage cessation -Nicotine patch available if patient desires Anxiety/depression -Continue home Seroquel -Continue home nocturnal hydroxyzine Morbid obesity -Recommend weight loss -BMI 45.3 -Complicates treatment, prognosis, outcomes DVT prophylaxis -Lovenox Next-SCDs CODE STATUS -Full code as verified on admission Charges/Coding Visit Charges Inpatient E&M: 87191 Subs Hosp L2
[2022-06-23] MEDS: Furosemide 40 MG/4 ML Vial IV (16:51)
[2022-06-23 17:46] LABS: Bedside Glucose 186 mg/dL (74-106)
[2022-06-23] MEDS: Pravastatin 40 MG Tablet PO (22:04)
[2022-06-23 22:35] LABS: Bedside Glucose 149 mg/dL (74-106)
[2022-06-24] VITALS (9 sets, daily range): BP systolic 145–147; BP diastolic 78; PULSE 66–89; RESP 18–32; TEMP 36.6; O2SAT 85–92
[2022-06-24 06:55] LABS: Absolute Lymphocyte Count 6.36 X10^3/uL (0.83-4.51); Basophil# 0.03 X10^3/uL; Basophil% 0.1 % (0-1); Eosinophil# 0.01 X10^3/uL; Hematocrit 45.4 % (40-54); Hemoglobin 15.1 g/dL (13.0-16.5); Lymphocyte # 6.36 X10^3/ul (0.83-4.51); Lymphocyte % 30.4 % (19-41); Mean Corp Hgb Conc 33.3 g/dL (32-36); Mean Corpuscular Hgb 30.6 pg (27.0-32.0); Mean Corpuscular Volume 91.9 fL (80-94); Mean Platelet Vol. 10.4 fl (6.2-12.0); Monocyte# 2.37 X10^3/uL; Monocyte% 11.3 % (0-10); NRBC Flagged by Analyzer 0 % (0-5); Neutrophil # 12.02 X10^3/uL (2.7-7.7); Neutrophil % 57.7 % (47-70); POSITIVE DIFFERENTIAL YES; POSITIVE MORPHOLOGY YES; Platelet Count 453 K/mm3 (150-450); RBC Distribution Width CV 13.9 % (11.6-14.6); RBC Distribution Width SD 46.5 fl (35.1-43.9); Red Blood Count 4.94 M/mm3 (4.6-6.2); White Blood Count 20.9 K/mm3 (4.4-11.0)
[2022-06-24 06:58] LABS: Differential Indicated SCAN CRITERIA MET
[2022-06-24 07:30] LABS: ALB/GLOB Ratio 0.7 RATIO (0.9-2.4); AST(SGOT) 24 U/L (15-37); Alanine Aminotransfer ALT/SGPT 63 U/L (16-61); Albumin, Serum 3.1 g/dL (3.2-5.0); Alkaline Phosphatase 44 U/L (45-117); Anion Gap 6 (5-15); BUN 16 mg/dL (7-18); BUN/Creat Ratio 18.7 RATIO (10-20); Calcium,Total 9.1 mg/dL (8.5-10.1); Chloride 99 mmol/L (98-107); Creatinine, Serum 0.86 mg/dL (0.70-1.30); EST Glomerular Filtration Rate 97 mL/min (>60); Est Glom Filt Rate - Afr Amer 117 mL/min (>60); Estimated Creatinine Clearance 88.37 ml/min; Globulin 4.4 g/dL (2.2-4.2); Glucose 123 mg/dL (74-106); Magnesium 1.8 mg/dL (1.6-2.6); Phosphorus 2.2 mg/dL (2.5-4.9); Potassium 3.2 mmol/L (3.5-5.1); Protein, Total 7.5 g/dL (6.4-8.2); Sodium Level 137 mmol/L (136-145)
[2022-06-24 07:31] LABS: Atypical Lymphocyte 2+ %; Differential Comment SCANNED
[2022-06-24] MEDS: Ipratropium/Albuterol Sulfate 3 ML AMPUL.NEB INHALATION ×2 (07:39→11:37)
[2022-06-24 07:55] LABS: Bedside Glucose 133 mg/dL (74-106)
[2022-06-24] MEDS: cycloBENZAPRine HCl 5 MG TABLET PO (09:02)
[2022-06-24] MEDS: Potassium Chloride Oral Tablet 20 MEQ PO (09:02)
[2022-06-24] MEDS: Aspirin 81 MG TAB.CHEW PO (09:03)
[2022-06-24] MEDS: Clopidogrel Bisulfate 75 MG Tablet PO (09:03)
[2022-06-24] MEDS: QUEtiapine 100 MG Tablet 300 MG PO (09:03)
[2022-06-24] MEDS: hydroCHLOROthiazide 25 MG Tablet PO (09:03)
[2022-06-24] MEDS: Lisinopril 40 MG Tablet PO (09:03)
[2022-06-24] MEDS: 0.9% Saline Lock 10 ML Syringe IV (09:04)
[2022-06-24] MEDS: dexAMETHasone 10 MG/ML Vial 6 MG IV (09:04)
[2022-06-24] MEDS: Atenolol 50 MG Tablet PO (09:04)
[2022-06-24] MEDS: Enoxaparin 40 MG/0.4 ML Syringe SC (09:09)
[2022-06-24 09:53] LABS: Pathologist Review Reviewed
--- NOTE | 2022-06-24 10:14 | CASEMGMT ---
Pt qualifies for home oxygen at discharge, 3 liters at rest and 4 liters with exertion. Pt states preference for [employer] and order faxed. Pt to be sent home with [facility] pulse ox at discharge. Pt aware to wear 3 liters at rest and 4 liters with exertion to keep oxygen level greater than 89%. Pt states is 'feeling great' and voices no further questions/concerns/needs for discharge. Lex[place] [facility]. Pt's address was confirmed and placed on facesheet and O2 order. Marcela GUNTER CM
--- NOTE | 2022-06-24 11:02 | DS.PCM_ITS ---
Providers Date of Admission: 06/22/22 Date of Discharge: 06/24/22 Primary Care Physician: [facility] Reason For Visit: COVID, COPD EXAC, HYPOXIA, CHEST PAIN Diagnosis Discharge Diagnosis (1) COPD exacerbation: Status: Chronic Code(s): J44.1 - Chronic obstructive pulmonary disease with (acute) exacerbation (2) Hypoxemia: Status: Acute Code(s): R09.02 - Hypoxemia (3) COVID-19: Status: Acute Code(s): U07.1 - COVID-19 Plan Acute COVID-19 infection -Positive test in the emergency department on admission -Not back to needed -Continue Decadron day 2 of 10 -Continue remdesivir day 2 of 5 -Supportive care -Patient is currently on 3 L nasal cannula--> wean as able -Chest x-ray on admission is overall unremarkable -We will utilize diuretics as needed -Avoid aggressive hydration -CRP elevated to 44.7/LDH 252 -Procalcitonin is 0.10 Acute exacerbation of COPD -Likely related to acute COVID-19 infection -Not a candidate for any biologic therapy -Continue steroids with Decadron -Aggressive pulmonary toilet -I-S/Pep therapy -Respiratory panel is negative -Strep pneumo and Legionella antigens are negative -Currently on 3 L nasal cannula with an SPO2 of 92 to 96% -At baseline is not on any supplemental oxygen Chest pain -EKG unremarkable -Cardiac enzymes cycled and negative -Cholesterol obtained and control is good with an LDL of 62 and a total cholesterol of 106 -Likely not cardiac in nature and more related to COPD exacerbation/COVID-19 infection DM-2 -Anticipate steroid-induced hyperglycemia -Hold home oral agents in Clement right metformin neck-sliding scale insulin -May need scheduled Lantus depending on blood sugar is -Continue to monitor BGT's -Diabetic diet CAD/HTN/HPL -History of PCI to proximal LAD and distal RCA in 2011 -Continue aspirin -Continue Plavix -Continue atenolol -Continue lisinopril -Continue statin Tobacco abuse -Encourage cessation -Nicotine patch available if patient desires Anxiety/depression -Continue home Seroquel -Continue home nocturnal hydroxyzine Morbid obesity -Recommend weight loss -BMI 45.3 -Complicates treatment, prognosis, outcomes DVT prophylaxis -Lovenox Next-SCDs CODE STATUS -Full code as verified on admission Medications at Discharge Home Medications albuterol sulfate 90 mcg/actuation aerosol inhaler (Proventil HFA) 6.7 g IH PRN PRN Wheezing 02/18/14 aspirin 81 mg chewable tablet 81 mg PO DAILY@0800 HEALTH 02/18/14 atenolol 50 mg tablet 50 mg PO BID BP 02/18/14 docusate sodium 100 mg capsule (DOK) 100 mg PO DAILY PRN Constipation 02/18/14 hydrochlorothiazide 25 mg tablet 25 mg PO DAILY FLUID 02/18/14 lisinopril 40 mg tablet 40 mg PO DAILY BP 02/18/14 nitroglycerin 0.4 mg sublingual tablet 0.4 mg sublingual Q5M PRN Chest Pain 02/18/14 potassium chloride 10 mEq tablet,extended release (Klor-Con) 20 meq PO DAILY S UPPLEMENT 02/18/14 quetiapine 300 mg tablet (Seroquel) 300 mg PO QHS MOOD 02/18/14 clopidogrel 75 mg tablet 75 mg PO DAILY BLOOD THINNER 07/07/17 budesonide-formoterol HFA 160 mcg-4.5 mcg/actuation aerosol inhaler (Symbicort) 2 puff inhalation BID COPD 06/22/22 cholecalciferol (vitamin D3) 125 mcg (5,000 unit) tablet (Vitamin D3) 50,000 unit PO SA SUPPLEMENT 06/22/22 cyclobenzaprine 5 mg tablet 5 mg PO DAILY PRN Spasms 06/22/22 glimepiride 1 mg tablet 1 mg PO DAILY DM 06/22/22 hydroxyzine HCl 25 mg tablet 25 mg PO QHS SLEEP 06/22/22 metformin 1,000 mg tablet 1,000 mg PO BID DM 06/22/22 pravastatin 40 mg tablet 40 mg PO QHS CHOLESTEROL 06/22/22 dexamethasone 6 mg tablet (Decadron) 6 mg PO DAILY #7 tabs 06/24/22 Hospital Course Operations None Procedures None Summary of Care Provided Minutes Spent on Discharge: 36 Hospital Course: Mr. Meza is a 62-year-old white male who presented to the emergency department at [facility] on 06/22/2022 complaining of shortness of breath and chest pain that started the evening prior. On presentation he reported that his chest discomfort started approximately midnight the day prior and he was suffering from progressively worsening dyspnea with some improvement upon awakening. He denied any recent illnesses, fever, cough. He was not vaccinated against COVID-19 and does not use oxygen chronically. He is a smoker and had his last cigarette just prior to admission. He had no chest pain upon hospital list evaluation emergency department. Work-up in the ED included T96.5, heart rate 85, BP 136/62, respiratory rate 20-26, initially 88% on room air even tually requiring 3 L nasal cannula to maintain 92% oxygenation, CBC with WC 16.2, hemoglobin 16.4, platelet 366 with left shift and lymphocytosis, D-dimer 0.30, BMP with sodium 134, chloride 96, glucose 110, troponin 11, chest x-ray with chronic changes at the lung bases with no acute cardiopulmonary findings otherwise, rapid SARS COVID antigen positive, EKG with sinus rhythm with no acute evidence of ischemia.? In the ED the patient was administered aspirin 324 mg p.o. x1, Decadron 6 mg p.o. x1, DuoNeb therapy as well as nitroglycerin and normal saline. He was admitted to the PCU and his cardiac enzymes were followed and remained negative throughout his hospital course. His chest pain resolved and without EKG changes no further work-up was pursued. He did require 3 L of oxygen throughout his hospital course but had no worsening requirements during his hospitalization. We did assess him for oxygen needs prior to discharge and he was stable on 3 L needing 4 with exertion. His wheezing had resolved and he reported that he was at least 75 to 90% better at the time of discharge. His p.o. intake improved and he was eating a regular diet without any difficulties. During his hospitalization he received Decadron and remdesivir. Unfortunately he is on multiple medications that interact with Paxlovid we were unable to prescribe this at discharge however we did maintain his Decadron at 6 mg for the next 7 days. We have advised him to self quarantine for 5 days since symptom onset and then if he is in public around people he should continue masking for 5 days following his quarantine. He may return to work next Tuesday while masking. We have asked him to follow-up with his primary care physician within the next 2 weeks to reevaluate his oxygen needs. He was also prescribed oxygen and a pulse oximetry. We have asked him to monitor his pulse ox periodically throughout the day and read present to the emergency department if his sats are unable to be maintained at greater than 88%. We also counseled him extensively on tobacco cessation especially while he is on oxygen and discussed the consequences of smoking while utilizing oxygen. He was discharged home in [facility] condition on 06/24/2022. Discharge diagnoses: Acute COVID-19 infection Hypoxia Acute exacerbation of COPD Chest pain-resolved DM-2 CAD Hypertension Hyperlipidemia Tobacco abuse Anxiety Depression Morbid obesity Physical Exam Narrative Patient states he feels so much better. He rates it at least 75 to 90% improvement since admission. Anxious to go home. Still requiring only 3 L of oxygen. We did ambulate with oxygen and he required only 4 L. We are obtaining a home pulse oximetry for him as well. Const alert, oriented x3, no apparent distress and well nourished Constitutional Narrative: Morbidly obese, white upper middle-aged male sitting in bed watching television, appears comfortable, nontoxic currently on 3 L nasal cannula, very talkative General Appearance: cooperative, comfortable, well kempt and well developed Orientation / Consciousness: awake Exam Limitations: no limitations Nutritional Appearance: morbidly obese HEENT normocephalic, head/scalp atraumatic and moist oral mucous membranes; Negative for hearing grossly normal bilaterally HEENT Narrative: Mallampati 3-4, no thrush, dentition is poor, mild hearing loss Eyes PERRL, EOMs intact bilaterally and conjunctivae normal Eyes Narrative: No scleral icterus Neck no lymphadenopathy, supple and no JVD Neck Narrative: Trachea midline, no thyroid enlargement Resp normal respiratory effort, no retractions, no use of accessory muscles and clear to auscultation bilaterally Resp Narrative: Diffusely diminished but crackles and wheezes have resolved Auscultation: Negative for crackles, rales, rhonchi or wheezes Cardio regular rate, regular rhythm, S1 normal heart sound, S2 normal heart sound, no murmurs, no rub, no gallops, no clicks and no JVD GI normal to inspection, nondistended, normoactive bowel sounds, soft to palpation and non-tender Extremity no clubbing, cyanosis or edema Extremity Narrative: 2+ pedal pulses Skin no rashes or lesions noted, no wounds, skin turgor normal and no jaundice Skin Narrative: Multiple skin tags noted but no significant concerning lesions Neuro oriented x3, CN's II-XII intact bilaterally, moves all extremities and no focal motor deficits Sensorium / Orientation: awake, alert, oriented to person, oriented to place and oriented to time Speech: speech normal Motor Exam: strength 5/5 throughout Psych affect normal Psych Narrative: Very pleasant and appropriately interactive Weight / BMI Weight Weight: 134.5 kg Body Mass Index (BMI) 45.2 ABG / Lab / Microbiology Data Result Diagrams: 06/24/22 06:40 06/24/22 06:40 Laboratory: Laboratory Results - last 24 hr 06/22/22 17:15: Diff Path Review Reviewed 06/23/22 11:20: POC Glucose 193 H 06/23/22 16:48: POC Glucose 186 H 06/23/22 21:58: POC Glucose 149 H 06/24/22 06:40: WBC 20.9 H, RBC 4.94, Hgb 15.1, Hct 45.4, MCV 91.9, MCH 30.6, MCHC 33.3, RDW Std Deviation 46.5 H, RDW Coeff of Trevor 13.9, Plt Count 453 H, MPV 10.4, Immature Gran % (Auto) 0.500, Neut % (Auto) 57.7, Lymph % (Auto) 30.4, Bibb % (Auto) 11.3 H, Eos % (Auto) 0.0, Baso % (Auto) 0.1, Absolute Neuts (auto) 12.0 H, Absolute Lymphs (auto) 6.36 H, Nucleated RBC % 0, Differential Comment SCANNED, Diff Path Review May foll, Atypical Lymphocytes 2+ 06/24/22 06:40: Sodium 137, Potassium 3.2 L, Chloride 99, Carbon Dioxide 32.0, Anion Gap 6, BUN 16, Creatinine 0.86, Estim Creat Clear Calc 88.37, Est GFR (MDRD) Af Amer 117, Est GFR (MDRD) Non-Af 97, BUN/Creatinine Ratio 18.7, Glucose 123 H, Calcium 9.1, Phosphorus 2.2 L, Magnesium 1.8, Total Bilirubin 0.50, AST 24, ALT 63 H, Alkaline Phosphatase 44 L, Total Protein 7.5, Albumin 3.1 L, Globulin 4.4 H, Albumin/Globulin Ratio 0.7 L 06/24/22 06:48: POC Glucose 133 H Microbiology: Microbiology 06/23/22 00:00 Urine, Clean Catch Streptococcus pneumoniae Antigen (M - Final 06/23/22 00:00 Urine, Clean Catch Legionella Antigen - Final 06/22/22 21:55 Mucosa - Nasopharyngeal Respiratory Panel (PCR) - Final 06/22/22 18:10 Nasal Secretion SARS-CoV-2 & FLU Antigen (Rapid) - Final SARS-CoV-2 (COVID 19) D/C Instructions Discharge Diet: Low fat / Low cholesterol and 1800 Calorie Control Diet Discharge Activity: Return to Normal Activity (While wearing oxygen) Return to work on: 06/28/22 Meaningful Use Info Meaningful Use Diagnoses (Choose all that apply): None applicable Discharge Plan Admission Admit Date/Time: 06/22/22 19:15 Primary Reason for Your Visit: Shortness of breath Attending Provider: Jodie Nair Primary Care Provider: [facility] Consult[employer] Providers: Tanvi Still Instructions Additional Instructions / Restrictions: 1. Please quarantine yourself for 5 days since the day of symptom onset 2. Please wear a mask around others after quarantine for 5 days 3. Please wear 3 L of oxygen at rest and 4 L of oxygen while walking around and with exertion 4. Please check your oxygen saturations periodically and represent to the emergency department if your oxygen levels drop below 89% and stay low 5. Do not smoke cigarettes or anything else while utilizing supplemental oxygen Discharge Orders/Prescriptions Prescriptions: New dexamethasone [Decadron] 6 mg tablet 6 mg PO DAILY Qty: 7 0RF Continued clopidogrel 75 MG tablet 75 mg PO DAILY glimepiride 1 mg Tablet 1 mg PO DAILY budesonide-formoterol [Symbicort] 160-4.5 mcg/actuation Hfa Aerosol Inhaler 2 puff INHALATION BID cholecalciferol (vitamin D3) [Vitamin D3] 125 mcg (5,000 unit) Tablet 50,000 unit PO SA pravastatin 40 mg tablet 40 mg PO QHS Label Comments: TAKE 1 TABLET BY MOUTH EVERY DAY AT BEDTIME metformin 1,000 mg tablet 1,000 mg PO BID Label Comments: TAKE 1 TABLET TWICE DAILY hydroxyzine HCl 25 mg tablet 25 mg PO QHS Label Comments: TAKE 1 TABLET BY MOUTH DAILY AT BEDTIME cyclobenzaprine 5 mg tablet 5 mg PO DAILY PRN (Reason: Spasms) Label Comments: TAKE 1 TABLET BY MOUTH DAILY NEEDED FOR MUSCLE PAIN quetiapine [Seroquel] 300 MG tablet 300 mg PO QHS potassium chloride [Klor-Con 10] 10 MEQ tablet extended release 20 meq PO DAILY nitroglycerin 0.4 MG tablet 0.4 mg sublingual Q5M PRN (Reason: Chest Pain) docusate sodium [DOK] 100 MG capsule 100 mg PO DAILY PRN (Reason: Constipation) aspirin 81 MG tablet,chewable 81 mg PO DAILY@0800 hydrochlorothiazide 25 MG tablet 25 mg PO DAILY albuterol sulfate [Proventil HFA] 6.7 GM HFA aerosol inhaler 6.7 g IH PRN PRN (Reason: Wheezing) lisinopril 40 MG tablet 40 mg PO DAILY atenolol 50 MG tablet 50 mg PO BID Referrals / Follow Up: [facility]Primary Care Provider[facility] - Within 2 Weeks Disposition Disposition (needs filled in before D/C Order can be placed): Home, Self Care Charges/Coding Visit Charges Inpatient E&M: 77958 Disch Hosp
[2022-06-24] MEDS: Insulin Lispro 100 UNIT/ML INSULN.PEN SC (11:15)
[2022-06-24 12:26] LABS: Bedside Glucose 190 mg/dL (74-106)
--- NOTE | 2022-06-24 14:10 | PHA.DC.MR ---
Pharmacy Service has performed discharge medication reconciliation for this patient. Patient in COVID precautions, did not enter room due to isolation. Medication list reviewed. Home Medications albuterol sulfate 90 mcg/actuation aerosol inhaler (Proventil HFA) 6.7 g IH PRN PRN Wheezing 02/18/14 aspirin 81 mg chewable tablet 81 mg PO DAILY@0800 HEALTH 02/18/14 atenolol 50 mg tablet 50 mg PO BID BP 02/18/14 docusate sodium 100 mg capsule (DOK) 100 mg PO DAILY PRN Constipation 02/18/14 hydrochlorothiazide 25 mg tablet 25 mg PO DAILY FLUID 02/18/14 lisinopril 40 mg tablet 40 mg PO DAILY BP 02/18/14 nitroglycerin 0.4 mg sublingual tablet 0.4 mg sublingual Q5M PRN Chest Pain 02/18/14 potassium chloride 10 mEq tablet,extended release (Klor-Con) 20 meq PO DAILY SUPPLEMENT 02/18/14 quetiapine 300 mg tablet (Seroquel) 300 mg PO QHS MOOD 02/18/14 clopidogrel 75 mg tablet 75 mg PO DAILY BLOOD THINNER 07/07/17 budesonide-formoterol HFA 160 mcg-4.5 mcg/actuation aerosol inhaler (Symbicort) 2 puff inhalation BID COPD 06/22/22 cholecalciferol (vitamin D3) 125 mcg (5,000 unit) tablet (Vitamin D3) 50,000 unit PO SA SUPPLEMENT 06/22/22 cyclobenzaprine 5 mg tablet 5 mg PO DAILY PRN Spasms 06/22/22 glimepiride 1 mg tablet 1 mg PO DAILY DM 06/22/22 hydroxyzine HCl 25 mg tablet 25 mg PO QHS SLEEP 06/22/22 metformin 1,000 mg tablet 1,000 mg PO BID DM 06/22/22 pravastatin 40 mg tablet 40 mg PO QHS CHOLESTEROL 06/22/22 dexamethasone 6 mg tablet (Decadron) 6 mg PO DAILY #7 tabs 06/24/22 The patient's discharge medication list was reviewed for discrepancies and discrepancies were resolved.
[2022-06-25 09:24] LABS: Pathologist Review Reviewed
== END 2022-06-24 13:54 | disposition home or self-care (01) | DRG 178 ==
LOC: ED 19:11 → PCU 19:46
PROVIDERS: Admitting Provider Family Medicine; Emergency Provider Emergency Medicine; Visit Provider Internal Medicine
DX: U07.1 COVID-19 (principal); J44.1 Chronic obstructive pulmonary disease with (acute) exacerbation; Z68.42 Body mass index [BMI] 45.0-49.9, adult; E11.65 Type 2 diabetes mellitus with hyperglycemia; E66.01 Morbid (severe) obesity due to excess calories; I25.10 Atherosclerotic heart disease of native coronary artery without angina pectoris; I10 Essential (primary) hypertension; E78.5 Hyperlipidemia, unspecified; F41.9 Anxiety disorder, unspecified; I25.2 Old myocardial infarction; E55.9 Vitamin D deficiency, unspecified; F17.210 Nicotine dependence, cigarettes, uncomplicated; R09.02 Hypoxemia; F32.A Depression, unspecified; Z79.82 Long term (current) use of aspirin; Z79.899 Other long term (current) drug therapy; Z79.84 Long term (current) use of oral hypoglycemic drugs; T38.3X5A Adverse effect of insulin and oral hypoglycemic [antidiabetic] drugs, initial encounter; Z28.310 Unvaccinated for COVID-19; Z95.5 Presence of coronary angioplasty implant and graft; Z90.81 Acquired absence of spleen
CPT/HCPCS: 36415; 71045; 80048; 80053; 80061; 80076; 82728; 82962; 83615; 83735; 83880; 84100; 84145; 84484; 85025; 85379; 86140; 87428; 87449; 87633; 93005; 94640; 99285; 99406; J7030; J7050; A4216; J0248; J1940

== ENCOUNTER 2022-11-08 17:31 | Inpatient (IN) | payer MEDICARE, SELFPAY ==
[2022-11-08 17:32] VITALS: BP 176/61; PULSE 74; RESP 18; TEMP 36.4; O2SAT 91; BMI 49.1
[2022-11-08 19:47] VITALS: RESP 30; O2SAT 87
--- NOTE | 2022-11-08 19:47 | EKG12_ITS ---
Test Reason : SOB Blood Pressure : / mmHG Vent. Rate : 065 BPM Atrial Rate : 065 BPM P-R Int : 214 ms QRS Dur : 102 ms QT Int : 414 ms P-R-T Axes : 064 041 060 degrees QTc Int : 430 ms Sinus rhythm with 1st degree A-V block Low voltage QRS (Limb Leads) Confirmed by YAMILE CHOUDHARY, FELISA ([id number]), subeditor JUAN MCKEON ([id number]) on 11/10/2022 10:39:21 AM Referred By: JAMES Confirmed By:FELISA OVALLE MD
--- NOTE | 2022-11-08 19:48 | ED.VIS.DYS ---
HPI History of Present Illness Chief Complaint: Shortness of Breath Informant: patient Narrative Narrative: 2-day history worsening dyspnea productive cough. No fevers. No chest pains. History of COPD with heavy tobacco history. States hospitalized 3 months ago for COVID COPD. He is nonvaccinated. He was sent home on oxygen however stopped needing a month later. He stopped smoking 2 days ago. History coronary disease 9 stents in the past. No chest pains. Prior similar symptoms: Yes PFSH PFSH Medical History Anxiety and depression CAD (coronary artery disease) COPD (chronic obstructive pulmonary disease) Diabetes mellitus Diabetes mellitus, type 2 History of coronary artery disease Hypertension Myocardial infarct, old Nicotine dependence Sleep apnea Vitamin D deficiency Home Medications albuterol sulfate 90 mcg/actuation aerosol inhaler (Proventil HFA) 6.7 g IH PRN PRN Wheezing 02/18/14 [History Last Taken 11/08/22] aspirin 81 mg chewable tablet 81 mg PO DAILY@0800 HEALTH 02/18/14 [History Last Taken 11/08/22] atenolol 50 mg tablet 50 mg PO BID BP 02/18/14 [History Last Taken 11/07/22] docusate sodium 100 mg capsule (DOK) 100 mg PO DAILY PRN Constipation 02/18/14 [History Last Taken 11/07/22] hydrochlorothiazide 25 mg tablet 25 mg PO DAILY FLUID 02/18/14 [History Last Taken 11/07/22] lisinopril 40 mg tablet 40 mg PO DAILY BP 02/18/14 [History Last Taken 11/07/22] potassium chloride 10 mEq tablet,extended release (Klor-Con) 20 meq PO DAILY SUPPLEMENT 02/18/14 [History Last Taken 11/08/22] quetiapine 300 mg tablet (Seroquel) 300 mg PO QHS MOOD 02/18/14 [History Last Taken 11/07/22] clopidogrel 75 mg tablet 75 mg PO DAILY BLOOD THINNER 07/07/17 [History Last Taken 11/08/22] budesonide-formoterol HFA 160 mcg-4.5 mcg/actuation aerosol inhaler (Symbicort) 2 puff inhalation BID COPD 06/22/22 [History Last Taken 11/08/22] cyclobenzaprine 5 mg tablet 5 mg PO DAILY PRN Spasms 06/22/22 [History Last Taken 11/08/22] glimepiride 1 mg tablet 1 mg PO DAILY DM 06/22/22 [History Last Taken 11/07/22] hydroxyzine HCl 25 mg tablet 25 mg PO QHS SLEEP 06/22/22 [History Last Taken 11/07/22] metformin 1,000 mg tablet 1,000 mg PO BID DM 06/22/22 [History Last Taken 11/07/22] pravastatin 40 mg tablet 40 mg PO QHS CHOLESTEROL 06/22/22 [History Last Taken 11/07/22] amlodipine 10 mg tablet 10 mg PO DAILY HTN 11/08/22 [History Last Taken 11/08/22] bupropion HCl 150 mg tablet,12 hr sustained-release 150 mg PO BID SMOKING CEASATION 11/08/22 [History Last Taken 11/08/22] ergocalciferol (vitamin D2) 1,250 mcg (50,000 unit) capsule 1,250 mcg PO SA SUPPLEMENT 11/08/22 [History Last Taken 11/06/22] fenofibrate nanocrystallized 145 mg tablet 145 mg PO DAILY TRIGLYCERIDES 11/08/22 [History Last Taken 11/07/22] Allergy/AdvReac Type Severity Reaction Status Date / Time No Known Allergies Allergy Verified 06/22/22 17:11 Family History Father CAD (coronary artery disease) Hypertension Heart disease Myocardial infarction Fatal [place] age 70. Brother CAD (coronary artery disease) Hypertension Heart disease Myocardial infarction [place] age 48. Mother Cancer Surgical History History of splenectomy S/P urological surgery Stented coronary artery Social History household members: none housing: apartment number of children: 1 current occupational status: disabled Smoking Status: Current every day smoker tobacco type: cigarettes alcohol intake: never substance use type: does not use ROS ROS ED Constitutional Constitutional ED: Denies chills, fever(s) or sweats Eyes Eyes: Denies change in vision ENT ENT ED: Denies dysphagia or sore throat Cardiovascular Cardiovascular: Denies chest pain, leg edema, palpitations or racing heartbeat Respiratory/Chest Respiratory/Chest: Reports cough and dyspnea; Denies dyspnea on exertion Gastrointestinal Gastrointestinal: Denies abdominal pain, diarrhea, nausea or vomiting Genitourinary Genitourinary ED: Denies dysuria, hematuria or urinary frequency Musculoskeletal Musculoskeletal: Denies back pain, extremity pain or neck pain Integumentary Denies rash or wounds Neurologic Neurologic: Denies headache(s), paresthesias or weakness EXAM Physical Exam Const Vital Signs: 11/08/22 17:32 11/08/22 19:46 11/08/22 19:47 Temperature 97.6 F L Temperature Source Temporal Pulse Rate 74 Respiratory Rate 18 30 H Respiratory Effort Labored Respiratory Depth Respiratory Pattern Blood Pressure 176/61 H Blood Pressure Mean 99 Pulse Ox 91 87 Oxygen Delivery Method Room Air Room Air Oxygen Flow Rate (L/min) 11/08/22 20:03 11/08/22 19:56 11/08/22 19:56 Temperature Temperature Source Pulse Rate 72 Respiratory Rate 20 H 24 H Respiratory Effort Normal Non-Labored Short of Breath Respiratory Depth Shallow Respiratory Pattern Normal Tachypnea Blood Pressure Blood Pressure Mean Pulse Ox 93 Oxygen Delivery Method Nasal Cannula Nasal Cannula Oxygen Flow Rate (L/min) 2 2.5 11/08/22 20:55 Temperature 98.0 F Temperature Source Temporal Pulse Rate 74 Respiratory Rate 26 H Respiratory Effort Respiratory Depth Respiratory Pattern Blood Pressure 143/90 H Blood Pressure Mean 107 Pulse Ox 93 Oxygen Delivery Method Nasal Cannula Oxygen Flow Rate (L/min) Positive well nourished and well developed Constitutional Narrative: Speaking in short sentences tachypneic General Appearance ED: well developed HEENT Reports moist mucous membranes normocephalic and atraumatic Eyes PERRL, EOMs intact bilaterally and conjunctivae normal General Eye ED: Yes normal appearance of both eyes Neck no lymphadenopathy and supple General: Negative for tenderness Chest Wall Chest: Negative for tenderness Resp Resp Narrative: Diminished breath sounds Effort and Inspection: symmetric chest movement and respiratory distress Cardio regular rate, regular rhythm and no murmurs Peripheral Pulses: pulses 2+ throughout GI normal to inspection, nondistended, normoactive bowel sounds and non-tender Palpation: Negative for guarding or rebound tenderness present Back/Spine no CVA tenderness and no thoracic nor lumbar tenderness Extremity normal to inspection General Extremety ED: Negative for edema or tenderness General Extremity: Negative for edema Neuro oriented x3 and no sensory deficits noted Sensorium / Orientation: awake and alert Skin no rashes or lesions noted and no wounds MDM MDM MDM Narrative Medical decision making narrative: Patient speaking in short sentences 87% on room air he is placed on 2 L of oxygen. Differential COPD exacerbation versus pneumonia versus COVID. Diminished breath sounds with productive sputum. Lower suspicion for PE with his COPD history with productive sputum. He is given aerosol treatment started on steroids. 1 view chest x-ray interpreted by myself off and read by radiology shows no acute osseous labs obtained and reviewed by myself has a white count of 20 hemoglobin 15.7. Troponin negative. Electrolytes are all normal. 2044: On reevaluation clinically more improved able to speak to me normally. He is stable on 2 L of oxygen. We will start doxycycline for coverage according to golds criteria for COPD exacerbation. Denies any urinary symptoms. I will speak with hospitalist for admission. Lab Data Attestation: I reviewed the patient's lab results. Labs: Laboratory Results - last 24 hr 11/08/22 11/08/22 19:55 19:55 WBC 20.1 H RBC 5.10 Hgb 15.7 Hct 47.5 MCV 93.1 MCH 30.8 MCHC 33.1 RDW Std Deviation 49.7 H RDW Coeff of Trevor 14.5 Plt Count 479 H MPV 10.0 Immature Gran % (Auto) 0.300 Neut % (Auto) 57.3 Lymph % (Auto) 33.7 [place] % (Auto) 8.0 Eos % (Auto) 0.5 Baso % (Auto) 0.2 Absolute Neuts (auto) 11.5 H Absolute Lymphs (auto) 6.77 H Nucleated RBC % 0 Differential Comment SCANNED Diff Path Review May foll Reactive Lymphocytes 1+ Sodium 139 Potassium 3.7 Chloride 102 Carbon Dioxide 30.0 Anion Gap 7 BUN 13 Creatinine 0.80 Estim Creat Clear Calc 95.00 Est GFR (MDRD) Af Amer 127 Est GFR (MDRD) Non-Af 105 BUN/Creatinine Ratio 16.3 Glucose 149 H Calcium 9.5 Troponin I High Sens 6 Radiography Diagnostic Testing: Clinical Impression(s) from Imaging Studies Chest X-Ray 11/08/22 20:20 IMPRESSION: No radiographic evidence of acute cardiopulmonary disease. Electronically Signed: Erwin Saucedo MD at 20:43 EST , EKG Initial EKG: Attestation: I personally reviewed and interpreted this EKG as follows: Comments: Sinus rate of 65, no ST or T wave changes first-degree AV block. Discharge Plan Dx/Rx/DC Orders Clinical Impression: Hypoxemia, COPD exacerbation, History of diabetes mellitus Disposition Disposition: Acute Care Hospital [facility] Discharge Date/Time: 11/08/22 22:21
[2022-11-08 19:56] VITALS: PULSE 72; RESP 20; RESP 24; O2SAT 93
[2022-11-08] MEDS: Albuterol 2.5 MG/3 ML VIAL.NEB. INHALATION (19:56)
[2022-11-08] MEDS: Ipratropium/Albuterol Sulfate 3 ML AMPUL.NEB INHALATION (19:56)
[2022-11-08 20:02] LABS: Absolute Lymphocyte Count 6.77 X10^3/uL (0.83-4.51); Absolute Neutrophil Count 11.5 X10^3/uL (2.0-7.7); Basophil# 0.05 X10^3/uL; Basophil% 0.2 % (0-1); Eosinophil# 0.11 X10^3/uL; Eosinophils% 0.5 % (0-5); Hematocrit 47.5 % (40-54); Hemoglobin 15.7 g/dL (13.0-16.5); Lymphocyte # 6.77 X10^3/ul (0.83-4.51); Lymphocyte % 33.7 % (19-41); Mean Corp Hgb Conc 33.1 g/dL (32-36); Mean Corpuscular Hgb 30.8 pg (27.0-32.0); Mean Corpuscular Volume 93.1 fL (80-94); Monocyte# 1.61 X10^3/uL; NRBC Flagged by Analyzer 0 % (0-5); Neutrophil # 11.46 X10^3/uL (2.7-7.7); Neutrophil % 57.3 % (47-70); POSITIVE DIFFERENTIAL YES; Platelet Count 479 K/mm3 (150-450); RBC Distribution Width CV 14.5 % (11.6-14.6); RBC Distribution Width SD 49.7 fl (35.1-43.9); White Blood Count 20.1 K/mm3 (4.4-11.0)
[2022-11-08] MEDS: MethylPREDNISolone 125 MG/2 ML Vial 60 MG IV (20:04)
[2022-11-08 20:09] LABS: Differential Indicated SCAN CRITERIA MET
--- NOTE | 2022-11-08 20:20 | RAD_ITS ---
INDICATION: cough EXAMINATION/TECHNIQUE: X-RAY - portable upright AP chest x-ray COMPARISON: 06/22/2022 FINDINGS: LINES/DEVICES: None. LUNGS: Stable mild bibasilar fibrotic changes without consolidation, pleural effusion or vascular congestion. MEDIASTINUM AND CARDIOVASCULAR STRUCTURES: Cardiac silhouette not enlarged. Central airways and mediastinal contour are unremarkable. BONES AND SOFT TISSUES: No acute changes. RAD/Chest 1 View (Portable) IMPRESSION: No radiographic evidence of acute cardiopulmonary disease. Electronically Signed: Erwin Saucedo MD at 20:43 EST ,
[2022-11-08 20:22] LABS: Anion Gap 7 (5-15); BUN 13 mg/dL (7-18); BUN/Creat Ratio 16.3 RATIO (10-20); Calcium,Total 9.5 mg/dL (8.5-10.1); Chloride 102 mmol/L (98-107); EST Glomerular Filtration Rate 105 mL/min (>60); Est Glom Filt Rate - Afr Amer 127 mL/min (>60); Glucose 149 mg/dL (74-106); Potassium 3.7 mmol/L (3.5-5.1); Sodium Level 139 mmol/L (136-145); Troponin-I HS 6 pg/mL (3.0-78.0)
--- NOTE | 2022-11-08 20:29 | CPS ---
x1 Albuterol given to pt. in ER as well
[2022-11-08 20:36] LABS: Differential Comment SCANNED; Reactive Lymphocyte 1+
[2022-11-08 20:55] VITALS: BP 143/90; PULSE 74; RESP 26; TEMP 36.7; O2SAT 93
--- NOTE | 2022-11-08 20:56 | HP.PCM_ITS ---
[facility] - General General Date of Admission: 11/08/22 Date of Service: 11/08/22 Chief Complaint: Shortness of breath HPI Narrative FÁTIMA TORRES, is a 62 M who presents to the emergency room with chief complaint of shortness of breath. Patient has significant past medical history of chronic obstructive pulmonary disease and was hospitalized 3 months ago with COVID and COPD exacerbation. At that time he required oxygen for approximately 1 month following his discharge but subsequently discontinued oxygen at home. He states he is felt more short of breath over the last 2 days and is trying to quit smoking cigarettes. Patient denies chest pain, fever or chills and/or nausea and/or vomiting. CBC shows an elevated white blood cell count 20,000 and chest x-ray is negative for pneumonia. His oxygen is below 90% on room air and requires 2 L nasal cannula to maintain his oxygen greater than 90%. Patient will be admitted overnight for COPD exacerbation. [facility] Medical History Anxiety and depression CAD (coronary artery disease) COPD (chronic obstructive pulmonary disease) Diabetes mellitus Diabetes mellitus, type 2 History of coronary artery disease Hypertension Myocardial infarct, old Nicotine dependence Sleep apnea Vitamin D deficiency Home Medications albuterol sulfate 90 mcg/actuation aerosol inhaler (Proventil HFA) 6.7 g IH PRN PRN Wheezing 02/18/14 [History Last Taken 11/08/22] aspirin 81 mg chewable tablet 81 mg PO DAILY@0800 HEALTH 02/18/14 [History Last Taken 11/08/22] atenolol 50 mg tablet 50 mg PO BID BP 02/18/14 [History Last Taken 11/07/22] docusate sodium 100 mg capsule (DOK) 100 mg PO DAILY PRN Constipation 02/18/14 [History Last Taken 11/07/22] hydrochlorothiazide 25 mg tablet 25 mg PO DAILY FLUID 02/18/14 [History Last Taken 11/07/22] lisinopril 40 mg tablet 40 mg PO DAILY BP 02/18/14 [History Last Taken 11/07/22] potassium chloride 10 mEq tablet,extended release (Klor-Con) 20 meq PO DAILY SUPPLEMENT 02/18/14 [History Last Taken 11/08/22] quetiapine 300 mg tablet (Seroquel) 300 mg PO QHS MOOD 02/18/14 [History Last Taken 11/07/22] clopidogrel 75 mg tablet 75 mg PO DAILY BLOOD THINNER 07/07/17 [History Last Taken 11/08/22] budesonide-formoterol HFA 160 mcg-4.5 mcg/actuation aerosol inhaler (Symbicort) 2 puff inhalation BID COPD 06/22/22 [History Last Taken 11/08/22] cyclobenzaprine 5 mg tablet 5 mg PO DAILY PRN Spasms 06/22/22 [History Last Taken 11/08/22] glimepiride 1 mg tablet 1 mg PO DAILY DM 06/22/22 [History Last Taken 11/07/22] hydroxyzine HCl 25 mg tablet 25 mg PO QHS SLEEP 06/22/22 [History Last Taken 11/07/22] metformin 1,000 mg tablet 1,000 mg PO BID DM 06/22/22 [History Last Taken 11/07/22] pravastatin 40 mg tablet 40 mg PO QHS CHOLESTEROL 06/22/22 [History Last Taken 11/07/22] amlodipine 10 mg tablet 10 mg PO DAILY HTN 11/08/22 [History Last Taken 11/08/22] bupropion HCl 150 mg tablet,12 hr sustained-release 150 mg PO BID SMOKING CEASATION 11/08/22 [History Last Taken 11/08/22] ergocalciferol (vitamin D2) 1,250 mcg (50,000 unit) capsule 1,250 mcg PO SA SUPPLEMENT 11/08/22 [History Last Taken 11/06/22] fenofibrate nanocrystallized 145 mg tablet 145 mg PO DAILY TRIGLYCERIDES 11/08/22 [History Last Taken 11/07/22] Allergy/AdvReac Type Severity Reaction Status Date / Time No Known Allergies Allergy Verified 06/22/22 17:11 Family History Father CAD (coronary artery disease) Hypertension Heart disease Myocardial infarction Fatal [place] age 70. Brother CAD (coronary artery disease) Hypertension Heart disease Myocardial infarction [place] age 48. Mother Cancer Surgical History History of splenectomy S/P urological surgery Stented coronary artery Social History household members: none housing: apartment number of children: 1 current occupational status: disabled Smoking Status: Current every day smoker tobacco type: cigarettes alcohol intake: never substance use type: does not use ROS Constitutional Constitutional: Denies anorexia, chills or fever(s) Eyes Eyes: Denies blurry vision ENT HEENT: Denies abnormal hearing Respiratory/Chest Respiratory/Chest: Reports cough and shortness of breath at rest Gastrointestinal Gastrointestinal: Denies abdominal pain Genitourinary Genitourinary: Denies dysuria Musculoskeletal Musculoskeletal: Denies back pain Integumentary Integumentary: Denies jaundice Neurologic Neurologic: Denies abnormal gait Psychiatric Psychiatric: Denies anxiety Vital Signs Vital Signs Vital Signs: 11/08/22 17:32 11/08/22 19:46 11/08/22 19:47 Temperature 97.6 F L Temperature Source Temporal Pulse Rate 74 Respiratory Rate 18 30 H Respiratory Effort Labored Respiratory Depth Respiratory Pattern Blood Pressure 176/61 H Blood Pressure Mean 99 Pulse Ox 91 87 Oxygen Delivery Method Room Air Room Air Oxygen Flow Rate (L/min) 11/08/22 20:03 11/08/22 19:56 11/08/22 19:56 Temperature Temperature Source Pulse Rate 72 Respiratory Rate 20 H 24 H Respiratory Effort Normal Non-Labored Short of Breath Respiratory Depth Shallow Respiratory Pattern Normal Tachypnea Blood Pressure Blood Pressure Mean Pulse Ox 93 Oxygen Delivery Method Nasal Cannula Nasal Cannula Oxygen Flow Rate (L/min) 2 2.5 11/08/22 20:55 Temperature 98.0 F Temperature Source Temporal Pulse Rate 74 Respiratory Rate 26 H Respiratory Effort Respiratory Depth Respiratory Pattern Blood Pressure 143/90 H Blood Pressure Mean 107 Pulse Ox 93 Oxygen Delivery Method Nasal Cannula Oxygen Flow Rate (L/min) Weight Weight: 323 lb Body Mass Index (BMI) 49.1 Physical Exam Const alert, oriented x3 and no apparent distress General Appearance: cooperative HEENT normocephalic and head/scalp atraumatic Eyes PERRL Neck no lymphadenopathy Lymph Lymphatic: no lymphadenopathy noted Resp Auscultation: wheezes and diminished lung sounds Cardio regular rate, regular rhythm, S1 normal heart sound, S2 normal heart sound, no murmurs, no rub and no gallops GI normal to inspection, nondistended, normoactive bowel sounds Extremity normal capillary refill Skin General Skin Exam: no breakdown Neuro no focal motor deficits and no sensory deficits noted Psych thought process normal Appearance: appropriate Results Lab / Micro Data Result Diagrams: 11/08/22 19:55 11/08/22 19:55 Labs: Laboratory Results - last 24 hr 11/08/22 19:55: WBC 20.1 H, RBC 5.10, Hgb 15.7, Hct 47.5, MCV 93.1, MCH 30.8, MCHC 33.1, RDW Std Deviation 49.7 H, RDW Coeff of Trevor 14.5, Plt Count 479 H, MPV 10.0, Immature Gran % (Auto) 0.300, Neut % (Auto) 57.3, Lymph % (Auto) 33.7, [place] % (Auto) 8.0, Eos % (Auto) 0.5, Baso % (Auto) 0.2, Absolute Neuts (auto) 11.5 H, Absolute Lymphs (auto) 6.77 H, Nucleated RBC % 0, Differential Comment SCANNED, Diff Path Review February, Reactive Lymphocytes 1+ 11/08/22 19:55: Sodium 139, Potassium 3.7, Chloride 102, Carbon Dioxide 30.0, Anion Gap 7, BUN 13, Creatinine 0.80, Estim Creat Clear Calc 95.00, Est GFR (MDRD) Af Amer 127, Est GFR (MDRD) Non-Af 105, BUN/Creatinine Ratio 16.3, Glucose 149 H, Calcium 9.5, Troponin I High Sens 6 Micro: Microbiology 11/08/22 20:08 Nasal Secretion SARS-CoV-2 Antigen (Rapid) - Final Radiology Impression Chest X-Ray 11/08/22 20:20 IMPRESSION: No radiographic evidence of acute cardiopulmonary disease. Electronically Signed: Erwin Saucedo MD at 20:43 EST , Assessment & Plan Assessment/Plan (1) COPD exacerbation: (2) History of diabetes mellitus: (3) Hypoxemia: PLAN: Plan 1 COPD exacerbation?admit patient to general medical floor, oxygen per routine protocol, Solu-Medrol 40 mg IV every 8 hours, DuoNeb INH every 4 hours, continue doxycycline initiated in the emergency room will evaluate for appropriateness to discharge home with home oxygen tomorrow 2. Diabetes?continue routine home management 3. History of coronary artery disease status post 9 stents previously?encourage smoking cessation and will continue routine home medications 4. DVT prophylaxis?low molecular weight heparin Charges/Coding Visit Charges Inpatient E&M: 85485 Init Hosp L2
[2022-11-08 22:49] VITALS: RESP 20; BMI 49.1
[2022-11-08 23:40] VITALS: O2SAT 91
[2022-11-09] VITALS (13 sets, daily range): BP systolic 112–144; BP diastolic 62–75; PULSE 65–88; RESP 16–24; TEMP 36.5–36.8; O2SAT 88–94
[2022-11-09] MEDS: hydrOXYzine PAM 25 MG Capsule PO ×2 (00:03→21:55)
[2022-11-09] MEDS: QUEtiapine 100 MG Tablet 300 MG PO ×2 (00:04→21:55)
[2022-11-09] MEDS: Atenolol 50 MG Tablet PO ×3 (00:04→21:55)
[2022-11-09] MEDS: Pravastatin 40 MG Tablet PO ×2 (00:05→21:55)
[2022-11-09] MEDS: buPROPion (SR) 150 MG Tablet.SA PO ×3 (00:05→21:55)
[2022-11-09] MEDS: 0.9% Saline Lock 10 ML Syringe IV ×3 (00:31→13:42)
[2022-11-09 07:21] LABS: Absolute Lymphocyte Count 4.55 X10^3/uL (0.83-4.51); Absolute Neutrophil Count 11.1 X10^3/uL (2.0-7.7); Basophil# 0.02 X10^3/uL; Basophil% 0.1 % (0-1); Hematocrit 45.9 % (40-54); Hemoglobin 14.7 g/dL (13.0-16.5); Lymphocyte # 4.55 X10^3/ul (0.83-4.51); Mean Corpuscular Hgb 30.4 pg (27.0-32.0); Mean Corpuscular Volume 94.8 fL (80-94); Mean Platelet Vol. 10.2 fl (6.2-12.0); Monocyte% 3.1 % (0-10); NRBC Flagged by Analyzer 0 % (0-5); Neutrophil # 11.08 X10^3/uL (2.7-7.7); Neutrophil % 68.1 % (47-70); Platelet Count 485 K/mm3 (150-450); RBC Distribution Width CV 14.6 % (11.6-14.6); RBC Distribution Width SD 50.6 fl (35.1-43.9); Red Blood Count 4.84 M/mm3 (4.6-6.2); White Blood Count 16.3 K/mm3 (4.4-11.0)
[2022-11-09 07:31] LABS: Bedside Glucose 220 mg/dL (74-106)
[2022-11-09 07:44] LABS: Anion Gap 8 (5-15); BUN 18 mg/dL (7-18); BUN/Creat Ratio 20.8 RATIO (10-20); Calcium,Total 9.3 mg/dL (8.5-10.1); Chloride 101 mmol/L (98-107); Creatinine, Serum 0.87 mg/dL (0.70-1.30); EST Glomerular Filtration Rate 95 mL/min (>60); Est Glom Filt Rate - Afr Amer 115 mL/min (>60); Estimated Creatinine Clearance 87.36 ml/min; Glucose 225 mg/dL (74-106); Potassium 4.3 mmol/L (3.5-5.1); Sodium Level 138 mmol/L (136-145)
--- NOTE | 2022-11-09 08:31 | PN.HOSP_ITS ---
Subjective Subjective Follow-up COPD exacerbation Patient is a 62-year-old gentleman with history of tobacco dependence presented with progressive shortness of breath and assessment of COPD with acute exacerbation made admitted to regular nursing floor for further management Objective Data Objective Data Vital Signs: Vital Signs Temp Pulse Resp BP Pulse Ox O2 Del Method O2 Flow Rate 97.7 F L 65 22 H 142/75 H 93 Nasal Cannula 4 11/09/22 06:09 11/09/22 06:09 11/09/22 06:09 11/09/22 06:09 11/09/22 08:11 11/09/22 08:11 11/09/22 08:11 Oxygen Flow Rate (L/min) 4 Oxygen Delivery Method Nasal Cannula Weight: 146.51 kg Body Mass Index (BMI) 49.1 Intake & Output: Intake and Output for Last 24 Hours 11/07/22 11/08/22 11/09/22 23:59 23:59 23:59 Intake Total 260 / 260 Balance 260 / 260 Lab / Micro Data Result Diagrams: 11/09/22 06:45 11/09/22 06:45 Labs: Laboratory Results - last 24 hr 11/08/22 19:55: WBC 20.1 H, RBC 5.10, Hgb 15.7, Hct 47.5, MCV 93.1, MCH 30.8, MCHC 33.1, RDW Std Deviation 49.7 H, RDW Coeff of Trevor 14.5, Plt Count 479 H, MPV 10.0, Immature Gran % (Auto) 0.300, Neut % (Auto) 57.3, Lymph % (Auto) 33.7, [place] % (Auto) 8.0, Eos % (Auto) 0.5, Baso % (Auto) 0.2, Absolute Neuts (auto) 11.5 H, Absolute Lymphs (auto) 6.77 H, Nucleated RBC % 0, Differential Comment SCANNED, Diff Path Review May foll, Reactive Lymphocytes 1+ 11/08/22 19:55: Sodium 139, Potassium 3.7, Chloride 102, Carbon Dioxide 30.0, Anion Gap 7, BUN 13, Creatinine 0.80, Estim Creat Clear Calc 95.00, Est GFR (MDRD) Af Amer 127, Est GFR (MDRD) Non-Af 105, BUN/Creatinine Ratio 16.3, Glucose 149 H, Calcium 9.5, Troponin I High Sens 6 01/10/23 06:33: POC Glucose 220 H 11/09/22 06:45: WBC 16.3 H, RBC 4.84, Hgb 14.7, Hct 45.9, MCV 94.8 H, MCH 30.4, MCHC 32.0, RDW Std Deviation 50.6 H, RDW Coeff of Trevor 14.6, Plt Count 485 H, MPV 10.2, Immature Gran % (Auto) 0.700, Neut % (Auto) 68.1, Lymph % (Auto) 28.0, [place] % (Auto) 3.1, Eos % (Auto) 0.0, Baso % (Auto) 0.1, Absolute Neuts (auto) 11.1 H, Absolute Lymphs (auto) 4.55 H, Nucleated RBC % 0 11/09/22 06:45: Sodium 138, Potassium 4.3, Chloride 101, Carbon Dioxide 29.0, Anion Gap 8, BUN 18, Creatinine 0.87, Estim Creat Clear Calc 87.36, Est GFR (MDRD) Af Amer 115, Est GFR (MDRD) Non-Af 95, BUN/Creatinine Ratio 20.8 H, Glucose 225 H, Calcium 9.3 Micro: Microbiology 11/08/22 20:08 Nasal Secretion SARS-CoV-2 Antigen (Rapid) - Final Radiography Diagnostic Testing: Radiology Impression Chest X-Ray 11/08/22 20:20 IMPRESSION: No radiographic evidence of acute cardiopulmonary disease. Electronically Signed: Erwin Saucedo MD at 20:43 EST Reading Location ID and State: [facility] / [place] Tel , Service support , Physical Exam Narrative GENERAL: cooperative HEENT: Atraumatic; normocephalic EYES; Anicteric, Normal Conjunctiva NECK; supple, normal thyroid, RESPIRATORY: Diminished to auscultation with bilateral wheezes CARDIOVASCULAR: Regular S1 S2, GI: soft, normoactive bowel sounds, : No Renal angle tenderness; EXTREMITIES: No edema, no clubbing, MUSCULOSKELETAL: no muscle wasting NEURO: Awake; no lateralizing signs. SKIN: No Rash PSYCH; Flat affect Assessment & Plan Assessment/Plan (1) COPD exacerbation: (2) History of diabetes mellitus: (3) Hypoxemia: PLAN: Plan Patient is a 62-year-old gentleman with history of tobacco dependence presented with progressive shortness of breath and assessment of COPD with acute exacerbation made admitted to regular nursing floor for further management 1. Acute hypoxia ? Secondary to COPD with acute exacerbation. Patient has been admitted to regular nursing floor management IV Solu-Medrol, bronchodilator treatment with DuoNeb as well as doxycycline. Patient was started on oxygen which is currently being titrated to keep saturation greater than 90 2. Diabetes mellitus type 2 ? Uncontrolled due to concomitant use of steroid. Patient is on metformin and glimepiride held started on long-acting insulin. Was also placed on Accu-Cheks before meals and at bedtime with sliding scale coverage 3. Essential hypertension ? Patient blood pressure controlled on HCTZ and amlodipine did continue with home dose 4. Dyslipidemia ? Patient is on pravastatin as well as fenofibrate did continue 5. Morbid obesity with a BMI of 49.1 ? Complicating care weight loss advised 6. Coronary artery disease ? With previous PCI. Patient did not present with any chest pain. Will monitor. Did continue with therapy guided medications 6. DVT prophylaxis ? Lovenox dose adjusted for weight Time spent in the patient's overall evaluation,decision-making process, review of diagnostic data, adjustment of management, discussion with other providers, nursing nursing and ancillary staff involved in patient's care documentation, 40 Minutes Charges/Coding Visit Charges Inpatient E&M: 22944 Subs Hosp L2
[2022-11-09] MEDS: Glimepiride 1 MG Tablet PO (09:09)
[2022-11-09] MEDS: Enoxaparin 40 MG/0.4 ML Syringe SC (09:09)
[2022-11-09] MEDS: metFORMIN HCl 1,000 MG Tablet 1000 MG PO (09:10)
[2022-11-09] MEDS: hydroCHLOROthiazide 25 MG Tablet PO (09:10)
[2022-11-09] MEDS: Potassium Chloride Oral Tablet 20 MEQ PO (09:10)
[2022-11-09] MEDS: Fenofibrate 145 MG Tablet PO (09:10)
[2022-11-09] MEDS: Aspirin 81 MG TAB.CHEW PO (09:10)
[2022-11-09] MEDS: amLODIPine 10 MG Tablet PO (09:11)
[2022-11-09] MEDS: Clopidogrel Bisulfate 75 MG Tablet PO (09:11)
[2022-11-09] MEDS: Lisinopril 40 MG Tablet PO (09:11)
[2022-11-09] MEDS: Insulin Glargine-YFGN 100 UNIT/ML Pen 10 UNIT SC (10:25)
[2022-11-09] MEDS: Ipratropium/Albuterol Sulfate 3 ML AMPUL.NEB INHALATION ×3 (10:51→19:25)
[2022-11-09] MEDS: Insulin Lispro 100 UNIT/ML INSULN.PEN SC ×2 (11:34→21:54)
[2022-11-09 12:30] LABS: Bedside Glucose 292 mg/dL (74-106)
--- NOTE | 2022-11-09 13:35 | CASEMGMT ---
LYRIC RADER Assessment: Face to Face with pt for initial transition planning/care coordination assessment. RN PRASANTH introduced self and role at [facility], pt voices understanding and consents to assessment. Pt is A/O x4 and answers all questions appropriately at this time. Pt sitting up in bed with oxygen on in no distress. Care providers, pharmacy, and demographics verified/updated. Pt only has PO box listed in computer. Pt states he does not know his address. Made aware this will be needed in case pt needs oxygen for delivery. Pt states he has had [employer] in the past and they should have this info. Admitting Dx: COPD exac PCP:Brooklynn Gongora Specialists:Pt denies but states he is going to have an upcoming sleep study, stress test and to see . [facility] Prescription Benefit: yes LNOK: Tiana Maradiaga, mother Living Arrangements: Pt lives alone in a basement apt with no steps to enter. Transportation: Pt drives self and denies concerns with transportation. DME/HHC/SNF: Pt has a BGM at home but states he does not use d/t it hurting his fingers. Pt denies having previous HHC or SNF stays. Pt states no concerns with going home at time of dc. Pt would like [employer] should he need oxygen this hospital stay. Provided him with a verbal local in network list of DME providers. Pt states no further concerns/needs. CM to follow. Advised pt to ask CM if any further question/concerns/needs arise, voices understanding. Pt Goal: Home Plan: Home
[2022-11-09 15:26] LABS: Pathologist Review Reviewed
[2022-11-09 17:05] LABS: Bedside Glucose 146 mg/dL (74-106)
[2022-11-09 22:45] LABS: Bedside Glucose 246 mg/dL (74-106)
[2022-11-10] VITALS (14 sets, daily range): BP systolic 116–139; BP diastolic 56–82; PULSE 60–72; RESP 18–22; TEMP 36.5–37.3; O2SAT 84–93
[2022-11-10] MEDS: 0.9% Saline Lock 10 ML Syringe IV ×3 (05:49→13:50)
[2022-11-10 06:10] LABS: Absolute Lymphocyte Count 4.75 X10^3/uL (0.83-4.51); Absolute Neutrophil Count 19.1 X10^3/uL (2.0-7.7); Basophil# 0.04 X10^3/uL; Basophil% 0.2 % (0-1); Hemoglobin 14.3 g/dL (13.0-16.5); Lymphocyte # 4.75 X10^3/ul (0.83-4.51); Lymphocyte % 18.4 % (19-41); Mean Corp Hgb Conc 31.8 g/dL (32-36); Mean Corpuscular Hgb 30.6 pg (27.0-32.0); Mean Corpuscular Volume 96.2 fL (80-94); Mean Platelet Vol. 10.4 fl (6.2-12.0); Monocyte% 6.6 % (0-10); NRBC Flagged by Analyzer 0 % (0-5); Neutrophil # 19.07 X10^3/uL (2.7-7.7); Neutrophil % 73.8 % (47-70); POSITIVE DIFFERENTIAL YES; Platelet Count 475 K/mm3 (150-450); RBC Distribution Width CV 14.6 % (11.6-14.6); RBC Distribution Width SD 51.7 fl (35.1-43.9); Red Blood Count 4.68 M/mm3 (4.6-6.2); White Blood Count 25.8 K/mm3 (4.4-11.0)
[2022-11-10 06:32] LABS: Differential Indicated SCAN CRITERIA MET
[2022-11-10 06:39] LABS: Anisocytosis 2+; Macrocytosis 1+; Platelet Estimate SLT INC (ADEQ)
[2022-11-10 06:45] LABS: Anion Gap 2 (5-15); BUN 31 mg/dL (7-18); BUN/Creat Ratio 33.2 RATIO (10-20); Calcium,Total 9.3 mg/dL (8.5-10.1); Chloride 103 mmol/L (98-107); Creatinine, Serum 0.93 mg/dL (0.70-1.30); EST Glomerular Filtration Rate 87 mL/min (>60); Est Glom Filt Rate - Afr Amer 106 mL/min (>60); Estimated Creatinine Clearance 81.72 ml/min; Glucose 211 mg/dL (74-106); Magnesium 2.2 mg/dL (1.6-2.6); PSA,Total - Annual Screen 0.09 ng/mL (0.00-4.00); Phosphorus 4.3 mg/dL (2.5-4.9); Potassium 4.6 mmol/L (3.5-5.1); Sodium Level 136 mmol/L (136-145)
[2022-11-10] MEDS: Ipratropium/Albuterol Sulfate 3 ML AMPUL.NEB INHALATION ×4 (07:38→19:25)
[2022-11-10] MEDS: Aspirin 81 MG TAB.CHEW PO (08:13)
[2022-11-10] MEDS: Fenofibrate 145 MG Tablet PO (08:13)
[2022-11-10] MEDS: Potassium Chloride Oral Tablet 20 MEQ PO (08:13)
[2022-11-10] MEDS: buPROPion (SR) 150 MG Tablet.SA PO ×2 (08:14→20:49)
[2022-11-10] MEDS: Enoxaparin 40 MG/0.4 ML Syringe SC (08:15)
[2022-11-10] MEDS: Clopidogrel Bisulfate 75 MG Tablet PO (08:15)
[2022-11-10 08:25] LABS: Bedside Glucose 212 mg/dL (74-106)
[2022-11-10] MEDS: Insulin Glargine-YFGN 100 UNIT/ML Pen 10 UNIT SC (08:25)
[2022-11-10] MEDS: Lisinopril 40 MG Tablet PO (08:25)
[2022-11-10] MEDS: Atenolol 50 MG Tablet PO ×2 (08:25→20:48)
[2022-11-10] MEDS: hydroCHLOROthiazide 25 MG Tablet PO (08:25)
[2022-11-10] MEDS: amLODIPine 10 MG Tablet PO (08:25)
[2022-11-10] MEDS: Insulin Lispro 100 UNIT/ML INSULN.PEN SC ×4 (08:26→20:46)
--- NOTE | 2022-11-10 10:55 | PCM.PN.HOSP ---
Subjective Subjective COPD with acute exacerbation ? Plan was for patient to have been discharged home however he was found to be simply hypoxic with ambulation requiring almost 10 L. His WBC count is also trending up however this is attributed to patient's being on steroid. Patient discharge plans subsequently discontinued Objective Data Objective Data Vital Signs: Vital Signs Temp Pulse Resp BP Pulse Ox O2 Del Method O2 Flow Rate 97.7 F L 72 20 H 136/66 H 85 Nasal Cannula 2 11/10/22 08:38 11/10/22 08:38 11/10/22 08:38 11/10/22 08:38 11/10/22 10:41 11/10/22 08:38 11/10/22 10:41 Oxygen Flow Rate (L/min) [ 8 AMBULATING with Oxygen #3] Oxygen Flow Rate (L/min) [ 6 AMBULATING with Oxygen #2] Oxygen Flow Rate (L/min) [ 4 AMBULATING with Oxygen #1] Oxygen Flow Rate (L/min) [At 4 REST with Oxygen] Oxygen Flow Rate (L/min) [At 2 REST on Room Air] Oxygen Flow Rate (L/min) 5 Oxygen Delivery Method Nasal Cannula Weight: 146.51 kg Body Mass Index (BMI) 49.1 Intake & Output: Intake and Output for Last 24 Hours 11/08/22 11/09/22 11/10/22 23:59 23:59 23:59 Intake Total 780 / 980 700 / 700 Balance 780 / 980 700 / 700 Lab / Micro Data Result Diagrams: 11/10/22 05:20 11/10/22 05:20 Labs: Laboratory Results - last 24 hr 11/08/22 19:55: Diff Path Review Reviewed 11/09/22 11:27: POC Glucose 292 H 11/09/22 16:26: POC Glucose 146 H 11/09/22 21:52: POC Glucose 246 H 11/10/22 05:20: WBC 25.8 H, RBC 4.68, Hgb 14.3, Hct 45.0, MCV 96.2 H, MCH 30.6, MCHC 31.8 L, RDW Std Deviation 51.7 H, RDW Coeff of Trevor 14.6, Plt Count 475 H, MPV 10.4, Immature Gran % (Auto) 1.000 H, Neut % (Auto) 73.8 H, Lymph % (Auto) 18.4 L, [place] % (Auto) 6.6, Eos % (Auto) 0.0, Baso % (Auto) 0.2, Absolute Neuts (auto) 19.1 H, Absolute Lymphs (auto) 4.75 H, Nucleated RBC % 0, Diff Path Review May foll, Platelet Estimate SLT INC, Anisocytosis 2+, Macrocytosis 1+ 11/10/22 05:20: Sodium 136, Potassium 4.6, Chloride 103, Carbon Dioxide 31.0, Anion Gap 2 L, BUN 31 H, Creatinine 0.93, Estim Creat Clear Calc 81.72, Est GFR (MDRD) Af Amer 106, Est GFR (MDRD) Non-Af 87, BUN/Creatinine Ratio 33.2 H, Glucose 211 H, Calcium 9.3, Phosphorus 4.3, Magnesium 2.2, PSA Screen 0.09 11/10/22 05:20: Hemoglobin A1c 7.0 H 11/10/22 08:05: POC Glucose 212 H Micro: Microbiology 11/08/22 20:08 Nasal Secretion SARS-CoV-2 Antigen (Rapid) - Final Physical Exam Narrative GENERAL: cooperative but dyspneic at rest HEENT: Atraumatic; normocephalic EYES; Anicteric, Normal Conjunctiva NECK; supple, normal thyroid, RESPIRATORY: Diminished to auscultation with bilateral wheezes CARDIOVASCULAR: Regular S1 S2, GI: soft, normoactive bowel sounds, : No Renal angle tenderness; EXTREMITIES: No edema, no clubbing, MUSCULOSKELETAL: no muscle wasting NEURO: Awake; no lateralizing signs. SKIN: No Rash PSYCH; Flat affect Assessment & Plan Assessment/Plan (1) COPD exacerbation: (2) History of diabetes mellitus: (3) Hypoxemia: PLAN: Plan Patient is a 62-year-old gentleman with history of tobacco dependence presented with progressive shortness of breath and assessment of COPD with acute exacerbation made admitted to regular nursing floor for further management 1. Acute hypoxia ? Secondary to COPD with acute exacerbation. Patient has been admitted to regular nursing floor management IV Solu-Medrol, bronchodilator treatment with DuoNeb as well as doxycycline. Patient was started on oxygen which is currently being titrated to keep saturation greater than 90 ? 11/10/2022; patient still requiring significant oxygen. 10 L at rest. Plans to discharge patient please on hold 2. Diabetes mellitus type 2 ? Uncontrolled due to concomitant use of steroid. Patient is on metformin and glimepiride held started on long-acting insulin. Was also placed on Accu-Cheks before meals and at bedtime with sliding scale coverage ? 11/10/2022. Patient blood glucose control still not optimal due to concomitant use of steroid subsequent adjustment made 3. Essential hypertension ? Patient blood pressure controlled on HCTZ and amlodipine did continue with home dose 4. Dyslipidemia ? Patient is on pravastatin as well as fenofibrate did continue 5. Morbid obesity with a BMI of 49.1 ? Complicating care weight loss advised 6. Coronary artery disease ? With previous PCI. Patient did not present with any chest pain. Will monitor. Did continue with therapy guided medications 6. DVT prophylaxis ? Lovenox dose adjusted for weight 8. Leukocytosis ? Secondary to concomitant steroid use. However ordered chest x-ray to rule out pneumonia Time spent in the patient's overall evaluation,decision-making process, review of diagnostic data, adjustment of management, discussion with other providers, nursing nursing and ancillary staff involved in patient's care documentation, 56 Minutes Charges/Coding Visit Charges Inpatient E&M: 40882 Subs Hosp L3
[2022-11-10 11:51] LABS: Bedside Glucose 343 mg/dL (74-106)
--- NOTE | 2022-11-10 12:03 | RAD_ITS ---
INDICATION: dyspnea EXAMINATION/TECHNIQUE: X-RAY - XR Chest 1 View COMPARISON: November 08, 2022 FINDINGS: LINES/DEVICES: None. LUNGS: Mild interstitial thickening at the left base. Mild subsegmental atelectasis in the right lower lobe.. No focal infiltration. No pleural effusion.. No pneumothorax. MEDIASTINUM AND CARDIOVASCULAR STRUCTURES: Cardiac silhouette not enlarged. Central airways and mediastinal contour are unremarkable. Mild calcification of aortic knob BONES AND SOFT TISSUES: Dorsal spine demonstrates mild degenerative change The right basilar atelectasis is new finding since prior study RAD/Chest 1 View (Portable) IMPRESSION: Newly developed mild subsegmental atelectasis in the right lower lobe. Probable chronic interstitial changes in left lower lobe unchanged since previous study Electronically Signed: Judah Patten MD at 18:00 EST ,
[2022-11-10] MEDS: Furosemide 100 MG/10 ML Vial 80 MG IV (12:22)
--- NOTE | 2022-11-10 16:01 | NURSING ---
Dr Powell texted pt c/o pain under both breasts, real bad pain. And pain in his left jaw, like a toothache but he doesn't have teeth.
[2022-11-10 16:45] LABS: Bedside Glucose 263 mg/dL (74-106)
[2022-11-10 16:52] LABS: Troponin-I HS 4 pg/mL (3.0-78.0)
[2022-11-10 19:35] LABS: Troponin-I HS 5 pg/mL (3.0-78.0)
[2022-11-10] MEDS: Pravastatin 40 MG Tablet PO (20:47)
[2022-11-10] MEDS: QUEtiapine 100 MG Tablet 300 MG PO (20:47)
[2022-11-10] MEDS: hydrOXYzine PAM 25 MG Capsule PO (20:48)
[2022-11-10 21:36] LABS: Bedside Glucose 327 mg/dL (74-106)
[2022-11-10 22:29] LABS: Troponin-I HS 5 pg/mL (3.0-78.0)
[2022-11-11] VITALS (11 sets, daily range): BP systolic 126–148; BP diastolic 71–80; PULSE 62–88; RESP 18–22; TEMP 36.6–37.2; O2SAT 83–94
[2022-11-11 06:22] LABS: Absolute Lymphocyte Count 4.79 X10^3/uL (0.83-4.51); Absolute Neutrophil Count 15.9 X10^3/uL (2.0-7.7); Basophil# 0.03 X10^3/uL; Basophil% 0.1 % (0-1); Hematocrit 43.9 % (40-54); Hemoglobin 14.8 g/dL (13.0-16.5); Lymphocyte # 4.79 X10^3/ul (0.83-4.51); Lymphocyte % 21.4 % (19-41); Mean Corp Hgb Conc 33.7 g/dL (32-36); Mean Corpuscular Hgb 31.7 pg (27.0-32.0); Monocyte# 1.49 X10^3/uL; Monocyte% 6.7 % (0-10); NRBC Flagged by Analyzer 0 % (0-5); Neutrophil % 71.1 % (47-70); Platelet Count 457 K/mm3 (150-450); RBC Distribution Width CV 14.5 % (11.6-14.6); RBC Distribution Width SD 50.1 fl (35.1-43.9); Red Blood Count 4.67 M/mm3 (4.6-6.2); White Blood Count 22.4 K/mm3 (4.4-11.0)
[2022-11-11] MEDS: Ipratropium/Albuterol Sulfate 3 ML AMPUL.NEB INHALATION ×4 (06:46→20:10)
[2022-11-11 06:55] LABS: Bedside Glucose 227 mg/dL (74-106)
[2022-11-11 07:02] LABS: Anion Gap 6 (5-15); BUN 29 mg/dL (7-18); BUN/Creat Ratio 30.7 RATIO (10-20); Calcium,Total 9.1 mg/dL (8.5-10.1); Chloride 99 mmol/L (98-107); Creatinine, Serum 0.95 mg/dL (0.70-1.30); EST Glomerular Filtration Rate 86 mL/min (>60); Est Glom Filt Rate - Afr Amer 104 mL/min (>60); Glucose 237 mg/dL (74-106); Potassium 4.4 mmol/L (3.5-5.1); Sodium Level 137 mmol/L (136-145)
[2022-11-11] MEDS: Enoxaparin 40 MG/0.4 ML Syringe SC (08:01)
[2022-11-11] MEDS: Insulin Lispro 100 UNIT/ML INSULN.PEN SC ×4 (08:02→23:09)
[2022-11-11] MEDS: amLODIPine 10 MG Tablet PO (08:03)
[2022-11-11] MEDS: Insulin Glargine-YFGN 100 UNIT/ML Pen 10 UNIT SC (08:03)
[2022-11-11] MEDS: hydroCHLOROthiazide 25 MG Tablet PO (08:03)
[2022-11-11] MEDS: Potassium Chloride Oral Tablet 20 MEQ PO (08:03)
[2022-11-11] MEDS: Fenofibrate 145 MG Tablet PO (08:03)
[2022-11-11] MEDS: Clopidogrel Bisulfate 75 MG Tablet PO (08:04)
[2022-11-11] MEDS: Atenolol 50 MG Tablet PO ×2 (08:04→22:50)
[2022-11-11] MEDS: Lisinopril 40 MG Tablet PO (08:04)
[2022-11-11] MEDS: Aspirin 81 MG TAB.CHEW PO (08:04)
[2022-11-11] MEDS: buPROPion (SR) 150 MG Tablet.SA PO ×2 (08:05→22:51)
--- NOTE | 2022-11-11 09:22 | PCM.PN.HOSP ---
Subjective Subjective Follow-up COPD with acute exacerbation ? Patient discharge the day prior was discontinued after he was found to be significantly hypoxic. Chest x-ray obtained did showed newly developed massive segmental atelectasis in the right lower lobe. Use of incentive is parametria encouraged. Plan is to attempt to discharge patient today. Objective Data Objective Data Vital Signs: Vital Signs Temp Pulse Resp BP Pulse Ox O2 Del Method O2 Flow Rate 98.0 F 63 20 H 144/80 H 94 Nasal Cannula 5 11/11/22 07:44 11/11/22 07:44 11/11/22 07:44 11/11/22 07:44 11/11/22 07:44 11/11/22 07:44 11/11/22 07:44 Oxygen Flow Rate (L/min) [ 8 AMBULATING with Oxygen #3] Oxygen Flow Rate (L/min) [ 6 AMBULATING with Oxygen #2] Oxygen Flow Rate (L/min) [ 4 AMBULATING with Oxygen #1] Oxygen Flow Rate (L/min) [At 4 REST with Oxygen] Oxygen Flow Rate (L/min) [At 2 REST on Room Air] Oxygen Flow Rate (L/min) 5 Oxygen Delivery Method Nasal Cannula Weight: 146.51 kg Body Mass Index (BMI) 49.1 Intake & Output: Intake and Output for Last 24 Hours 11/09/22 11/10/22 11/11/22 23:59 23:59 23:59 Intake Total 780 / 980 1460 / 1460 Balance 780 / 980 1460 / 1460 Lab / Micro Data Result Diagrams: 11/11/22 05:47 11/11/22 05:47 Labs: Laboratory Results - last 24 hr 11/10/22 11:22: POC Glucose 343 H 11/10/22 15:56: POC Glucose 263 H 11/10/22 16:14: Troponin I High Sens 4 11/10/22 18:45: Troponin I High Sens 5 11/10/22 20:45: POC Glucose 327 H 11/10/22 21:47: Troponin I High Sens 5 11/11/22 05:47: WBC 22.4 H, RBC 4.67, Hgb 14.8, Hct 43.9, MCV 94.0, MCH 31.7, MCHC 33.7 D, RDW Std Deviation 50.1 H, RDW Coeff of Trevor 14.5, Plt Count 457 H, MPV 10.0, Immature Gran % (Auto) 0.700, Neut % (Auto) 71.1 H, Lymph % (Auto) 21.4, [place] % (Auto) 6.7, Eos % (Auto) 0.0, Baso % (Auto) 0.1, Absolute Neuts (auto) 15.9 H, Absolute Lymphs (auto) 4.79 H, Nucleated RBC % 0 11/11/22 05:47: Sodium 137, Potassium 4.4, Chloride 99, Carbon Dioxide 32.0, Anion Gap 6, BUN 29 H, Creatinine 0.95, Estim Creat Clear Calc 80.00, Est GFR (MDRD) Af Amer 104, Est GFR (MDRD) Non-Af 86, BUN/Creatinine Ratio 30.7 H, Glucose 237 H, Calcium 9.1 11/11/22 06:32: POC Glucose 227 H Micro: Microbiology 11/08/22 20:08 Nasal Secretion SARS-CoV-2 Antigen (Rapid) - Final Radiography Diagnostic Testing: Radiology Impression Chest X-Ray 11/10/22 12:03 IMPRESSION: Newly developed mild subsegmental atelectasis in the right lower lobe. Probable chronic interstitial changes in left lower lobe unchanged since previous study Electronically Signed: Judah Patten MD at 18:00 EST Reading Location ID and State: [facility] / [place] , Service support , Physical Exam Narrative GENERAL: cooperative but dyspneic at rest HEENT: Atraumatic; normocephalic EYES; Anicteric, Normal Conjunctiva NECK; supple, normal thyroid, RESPIRATORY: Diminished to auscultation with bilateral wheezes CARDIOVASCULAR: Regular S1 S2, GI: soft, normoactive bowel sounds, : No Renal angle tenderness; EXTREMITIES: No edema, no clubbing, MUSCULOSKELETAL: no muscle wasting NEURO: Awake; no lateralizing signs. SKIN: No Rash PSYCH; Flat affect Assessment & Plan Assessment/Plan (1) COPD exacerbation: (2) History of diabetes mellitus: (3) Hypoxemia: PLAN: Plan Patient is a 62-year-old gentleman with history of tobacco dependence presented with progressive shortness of breath and assessment of COPD with acute exacerbation made admitted to regular nursing floor for further management 1. Acute hypoxia ? Secondary to COPD with acute exacerbation. Patient has been admitted to regular nursing floor management IV Solu-Medrol, bronchodilator treatment with DuoNeb as well as doxycycline. Patient was started on oxygen which is currently being titrated to keep saturation greater than 90 ? 11/10/2022; patient still requiring significant oxygen. 10 L at rest. Plans to discharge patient placed on hold 11/11/2022; Patient discharge the day prior was discontinued after he was found to be significantly hypoxic. Chest x-ray obtained did showed newly developed massive segmental atelectasis in the right lower lobe. Use of incentive is parametria encouraged. Plan is to attempt to discharge patient today. 2. Diabetes mellitus type 2 ? Uncontrolled due to concomitant use of steroid. Patient is on metformin and glimepiride held started on long-acting insulin. Was also placed on Accu-Cheks before meals and at bedtime with sliding scale coverage ? 11/10/2022. Patient blood glucose control still not optimal due to concomitant use of steroid subsequent adjustment made 3. Essential hypertension ? Patient blood pressure controlled on HCTZ and amlodipine did continue with home dose 4. Dyslipidemia ? Patient is on pravastatin as well as fenofibrate did continue 5. Morbid obesity with a BMI of 49.1 ? Complicating care weight loss advised 6. Coronary artery disease ? With previous PCI. Patient did not present with any chest pain. Will monitor. Did continue with therapy guided medications 6. DVT prophylaxis ? Lovenox dose adjusted for weight 8. Leukocytosis ? Secondary to concomitant steroid use. However ordered chest x-ray to rule out pneumonia Time spent in the patient's overall evaluation,decision-making process, review of diagnostic data, adjustment of management, discussion with other providers, nursing nursing and ancillary staff involved in patient's care documentation, 36 Minutes Charges/Coding Visit Charges Inpatient E&M: 13263 Subs Hosp L2
[2022-11-11 09:31] LABS: Pathologist Review Reviewed
[2022-11-11] MEDS: 0.9% Saline Lock 10 ML Syringe IV ×3 (09:44→16:02)
[2022-11-11] MEDS: Furosemide 100 MG/10 ML Vial 80 MG IV (09:45)
[2022-11-11 12:55] LABS: Bedside Glucose 358 mg/dL (74-106)
[2022-11-11 16:25] LABS: Bedside Glucose 280 mg/dL (74-106)
[2022-11-11] MEDS: Furosemide 40 MG Tablet PO (18:44)
[2022-11-11] MEDS: QUEtiapine 100 MG Tablet 300 MG PO (22:50)
[2022-11-11] MEDS: Pravastatin 40 MG Tablet PO (22:51)
[2022-11-11] MEDS: hydrOXYzine PAM 25 MG Capsule PO (22:51)
[2022-11-11] MEDS: predniSONE 20 MG Tablet 40 MG PO (23:07)
[2022-11-11] MEDS: Doxycycline 100 MG CAPSULE PO (23:07)
[2022-11-11 23:36] LABS: Bedside Glucose 227 mg/dL (74-106)
[2022-11-12] VITALS (8 sets, daily range): BP systolic 130–145; BP diastolic 58–81; PULSE 60–93; RESP 18–20; TEMP 36.5–36.8; O2SAT 87–94
[2022-11-12] MEDS: Furosemide 40 MG Tablet PO ×2 (06:20→15:21)
[2022-11-12] MEDS: Insulin Lispro 100 UNIT/ML INSULN.PEN SC ×3 (06:26→18:54)
[2022-11-12 07:00] LABS: Bedside Glucose 226 mg/dL (74-106)
[2022-11-12 07:19] LABS: Absolute Lymphocyte Count 4.86 X10^3/uL (0.83-4.51); Absolute Neutrophil Count 12.6 X10^3/uL (2.0-7.7); Basophil# 0.03 X10^3/uL; Basophil% 0.2 % (0-1); Hematocrit 45.9 % (40-54); Lymphocyte # 4.86 X10^3/ul (0.83-4.51); Lymphocyte % 25.1 % (19-41); Mean Corp Hgb Conc 32.7 g/dL (32-36); Mean Corpuscular Hgb 30.7 pg (27.0-32.0); Mean Corpuscular Volume 93.9 fL (80-94); Mean Platelet Vol. 10.1 fl (6.2-12.0); Monocyte# 1.71 X10^3/uL; Monocyte% 8.8 % (0-10); NRBC Flagged by Analyzer 0 % (0-5); Neutrophil % 65.1 % (47-70); POSITIVE DIFFERENTIAL YES; Platelet Count 513 K/mm3 (150-450); RBC Distribution Width CV 14.4 % (11.6-14.6); RBC Distribution Width SD 49.3 fl (35.1-43.9); Red Blood Count 4.89 M/mm3 (4.6-6.2); White Blood Count 19.4 K/mm3 (4.4-11.0)
[2022-11-12 07:24] LABS: Differential Indicated SCAN CRITERIA MET
[2022-11-12 07:45] LABS: Anion Gap 7 (5-15); BUN 30 mg/dL (7-18); Calcium,Total 9.1 mg/dL (8.5-10.1); Chloride 94 mmol/L (98-107); Creatinine, Serum 1.07 mg/dL (0.70-1.30); EST Glomerular Filtration Rate 75 mL/min (>60); Est Glom Filt Rate - Afr Amer 90 mL/min (>60); Estimated Creatinine Clearance 71.03 ml/min; Glucose 239 mg/dL (74-106); Sodium Level 135 mmol/L (136-145)
[2022-11-12] MEDS: Ipratropium/Albuterol Sulfate 3 ML AMPUL.NEB INHALATION ×3 (08:23→14:42)
[2022-11-12] MEDS: Insulin Glargine-YFGN 100 UNIT/ML Pen 10 UNIT SC (08:35)
[2022-11-12] MEDS: Potassium Chloride Oral Tablet 20 MEQ PO (08:36)
[2022-11-12] MEDS: Aspirin 81 MG TAB.CHEW PO (08:36)
[2022-11-12] MEDS: Doxycycline 100 MG CAPSULE PO (08:37)
[2022-11-12] MEDS: predniSONE 20 MG Tablet 40 MG PO (08:37)
[2022-11-12] MEDS: Fenofibrate 145 MG Tablet PO (08:37)
[2022-11-12] MEDS: Clopidogrel Bisulfate 75 MG Tablet PO (08:38)
[2022-11-12] MEDS: amLODIPine 10 MG Tablet PO (08:38)
[2022-11-12] MEDS: hydroCHLOROthiazide 25 MG Tablet PO (08:38)
[2022-11-12] MEDS: Atenolol 50 MG Tablet PO (08:39)
[2022-11-12] MEDS: Lisinopril 40 MG Tablet PO (08:39)
[2022-11-12] MEDS: buPROPion (SR) 150 MG Tablet.SA PO (08:39)
--- NOTE | 2022-11-12 09:10 | PCM.PN.HOSP ---
Subjective Subjective Follow-up hypoxia Attempted discharge patient the day prior was unsuccessful. Will attend today with a 6-minute walk. There is also suspicion of congestive heart failure contributing to patient hypoxia ordered proBNP and a 2D echo patient started on Lasix. Objective Data Objective Data Vital Signs: Vital Signs Temp Pulse Resp BP Pulse Ox O2 Del Method O2 Flow Rate 97.7 F L 71 20 H 142/81 H 91 Nasal Cannula 5 11/12/22 06:15 11/12/22 08:23 11/12/22 08:23 11/12/22 06:15 11/12/22 08:23 11/12/22 08:23 11/12/22 08:23 Oxygen Flow Rate (L/min) [ 8 AMBULATING with Oxygen #3] Oxygen Flow Rate (L/min) [ 6 AMBULATING with Oxygen #2] Oxygen Flow Rate (L/min) [ 8 AMBULATING with Oxygen #1] Oxygen Flow Rate (L/min) [At 5 REST with Oxygen] Oxygen Flow Rate (L/min) [At 2 REST on Room Air] Oxygen Flow Rate (L/min) 5 Oxygen Delivery Method Nasal Cannula Weight: 146.51 kg Body Mass Index (BMI) 49.1 Intake & Output: Intake and Output for Last 24 Hours 11/10/22 11/11/22 11/12/22 23:59 23:59 23:59 Intake Total 1460 / 1460 660 / 660 Balance 1460 / 1460 660 / 660 Lab / Micro Data Result Diagrams: 11/12/22 06:45 11/12/22 06:45 Labs: Laboratory Results - last 24 hr 11/10/22 05:20: Diff Path Review Reviewed 11/11/22 11:16: POC Glucose 358 H 11/11/22 16:01: POC Glucose 280 H 11/11/22 22:56: POC Glucose 227 H 11/12/22 06:25: POC Glucose 226 H 11/12/22 06:45: WBC 19.4 H, RBC 4.89, Hgb 15.0, Hct 45.9, MCV 93.9, MCH 30.7, MCHC 32.7, RDW Std Deviation 49.3 H, RDW Coeff of Trevor 14.4, Plt Count 513 H, MPV 10.1, Immature Gran % (Auto) 0.800, Neut % (Auto) 65.1, Lymph % (Auto) 25.1, [place] % (Auto) 8.8, Eos % (Auto) 0.0, Baso % (Auto) 0.2, Absolute Neuts (auto) 12.6 H, Absolute Lymphs (auto) 4.86 H, Nucleated RBC % 0, Diff Path Review February foll 11/12/22 06:45: Sodium 135 L, Potassium 4.0, Chloride 94 L, Carbon Dioxide 34.0 H, Anion Gap 7, BUN 30 H, Creatinine 1.07, Estim Creat Clear Calc 71.03, Est GFR (MDRD) Af Amer 90, Est GFR (MDRD) Non-Af 75, BUN/Creatinine Ratio 28.0 H, Glucose 239 H, Calcium 9.1 Micro: Microbiology 11/08/22 20:08 Nasal Secretion SARS-CoV-2 Antigen (Rapid) - Final Physical Exam Narrative GENERAL: cooperative but dyspneic at rest HEENT: Atraumatic; normocephalic EYES; Anicteric, Normal Conjunctiva NECK; supple, normal thyroid, RESPIRATORY: Diminished to auscultation with bilateral wheezes CARDIOVASCULAR: Regular S1 S2, GI: soft, normoactive bowel sounds, : No Renal angle tenderness; EXTREMITIES: No edema, no clubbing, MUSCULOSKELETAL: no muscle wasting NEURO: Awake; no lateralizing signs. SKIN: No Rash PSYCH; Flat affect Assessment & Plan Assessment/Plan (1) COPD exacerbation: (2) History of diabetes mellitus: (3) Hypoxemia: PLAN: Plan Patient is a 62-year-old gentleman with history of tobacco dependence presented with progressive shortness of breath and assessment of COPD with acute exacerbation made admitted to regular nursing floor for further management 1. Acute hypoxia ? Secondary to COPD with acute exacerbation. Patient has been admitted to regular nursing floor management IV Solu-Medrol, bronchodilator treatment with DuoNeb as well as doxycycline. Patient was started on oxygen which is currently being titrated to keep saturation greater than 90 ? 11/10/2022; patient still requiring significant oxygen. 10 L at rest. Plans to discharge patient placed on hold 11/11/2022; Patient discharge the day prior was discontinued after he was found to be significantly hypoxic. Chest x-ray obtained did showed newly developed massive segmental atelectasis in the right lower lobe. Use of incentive is parametria encouraged. Plan is to attempt to discharge patient today. ? 11/12/2022. An order has been given for patient to undergo 6-minute walk to assess his oxygen requirement going home 2. Diabetes mellitus type 2 ? Uncontrolled due to concomitant use of steroid. Patient is on metformin and glimepiride held started on long-acting insulin. Was also placed on Accu-Cheks before meals and at bedtime with sliding scale coverage ? 11/10/2022. Patient blood glucose control still not optimal due to concomitant use of steroid subsequent adjustment made 3. Essential hypertension ? Patient blood pressure controlled on HCTZ and amlodipine did continue with home dose 4. Dyslipidemia ? Patient is on pravastatin as well as fenofibrate did continue 5. Morbid obesity with a BMI of 49.1 ? Complicating care weight loss advised 6. Coronary artery disease ? With previous PCI. Patient did not present with any chest pain. Will monitor. Did continue with therapy guided medications 6. DVT prophylaxis ? Lovenox dose adjusted for weight 8. Leukocytosis ? Secondary to concomitant steroid use. However ordered chest x-ray to rule out pneumonia ? 11/12/2022; patient WBC count trending down 9. Suspected congestive heart failure ? Order proBNP 2D echo patient started on Lasix Time spent in the patient's overall evaluation,decision-making process, review of diagnostic data, adjustment of management, discussion with other providers, nursing nursing and ancillary staff involved in patient's care documentation, 36 Minutes Charges/Coding Visit Charges Inpatient E&M: 81290 Subs Hosp L2
--- NOTE | 2022-11-12 09:28 | PCM.DC.SUM ---
Providers Date of Admission: 11/08/22 Date of Discharge: 11/10/22 Primary Care Physician: [facility] Reason For Visit: COPD EXACERBATION Diagnosis Discharge Diagnosis (1) COPD exacerbation: Status: Chronic Code(s): J44.1 - Chronic obstructive pulmonary disease with (acute) exacerbation (2) History of diabetes mellitus: Status: Acute Code(s): Z86.39 - Personal history of other endocrine, nutritional and metabolic disease (3) Hypoxemia: Status: Acute Code(s): R09.02 - Hypoxemia Plan Patient is a 62-year-old gentleman with history of tobacco dependence presented with progressive shortness of breath and assessment of COPD with acute exacerbation made admitted to regular nursing floor for further management 1. Acute hypoxia ? Secondary to COPD with acute exacerbation. Patient has been admitted to regular nursing floor management IV Solu-Medrol, bronchodilator treatment with DuoNeb as well as doxycycline. Patient was started on oxygen which is currently being titrated to keep saturation greater than 90 2. Diabetes mellitus type 2 ? Uncontrolled due to concomitant use of steroid. Patient is on metformin and glimepiride held started on long-acting insulin. Was also placed on Accu-Cheks before meals and at bedtime with sliding scale coverage 3. Essential hypertension ? Patient blood pressure controlled on HCTZ and amlodipine did continue with home dose 4. Dyslipidemia ? Patient is on pravastatin as well as fenofibrate did continue 5. Morbid obesity with a BMI of 49.1 ? Complicating care weight loss advised 6. Coronary artery disease ? With previous PCI. Patient did not present with any chest pain. Will monitor. Did continue with therapy guided medications 6. DVT prophylaxis ? Lovenox dose adjusted for weight Medications at Discharge Home Medications albuterol sulfate 90 mcg/actuation aerosol inhaler (Proventil HFA) 6.7 g IH PRN PRN Wheezing 02/18/14 aspirin 81 mg chewable tablet 81 mg PO DAILY@0800 HEALTH 02/18/14 atenolol 50 mg tablet 50 mg PO BID BP 02/18/14 docusate sodium 100 mg capsule (DOK) 100 mg PO DAILY PRN Constipation 02/18/14 hydrochlorothiazide 25 mg tablet 25 mg PO DAILY FLUID 02/18/14 lisinopril 40 mg tablet 40 mg PO DAILY BP 02/18/14 potassium chloride 10 mEq tablet,extended release (Klor-Con) 20 meq PO DAILY SUPPLEMENT 02/18/14 quetiapine 300 mg tablet (Seroquel) 300 mg PO QHS MOOD 02/18/14 clopidogrel 75 mg tablet 75 mg PO DAILY BLOOD THINNER 07/07/17 budesonide-formoterol HFA 160 mcg-4.5 mcg/actuation aerosol inhaler (Symbicort) 2 puff inhalation BID COPD 06/22/22 cyclobenzaprine 5 mg tablet 5 mg PO DAILY PRN Spasms 06/22/22 glimepiride 1 mg tablet 1 mg PO DAILY DM 06/22/22 hydroxyzine HCl 25 mg tablet 25 mg PO QHS SLEEP 06/22/22 metformin 1,000 mg tablet 1,000 mg PO BID DM 06/22/22 pravastatin 40 mg tablet 40 mg PO QHS CHOLESTEROL 06/22/22 amlodipine 10 mg tablet 10 mg PO DAILY HTN 11/08/22 bupropion HCl 150 mg tablet,12 hr sustained-release 150 mg PO BID SMOKING CEASATION 11/08/22 ergocalciferol (vitamin D2) 1,250 mcg (50,000 unit) capsule 1,250 mcg PO SA SUPPLEMENT 11/08/22 fenofibrate nanocrystallized 145 mg tablet 145 mg PO DAILY TRIGLYCERIDES 11/08/22 doxycycline hyclate 100 mg capsule 100 mg PO BID #14 caps 11/10/22 prednisone 20 mg tablet 20 mg PO BID #10 tabs 11/10/22 Hospital Course Summary of Care Provided Minutes Spent on Discharge: 38 Physical Exam Narrative GENERAL: cooperative HEENT: Atraumatic; normocephalic EYES; Anicteric, Normal Conjunctiva NECK; supple, normal thyroid, RESPIRATORY: Diminished to auscultation with bilateral wheezes CARDIOVASCULAR: Regular S1 S2, GI: soft, normoactive bowel sounds, : No Renal angle tenderness; EXTREMITIES: No edema, no clubbing, MUSCULOSKELETAL: no muscle wasting NEURO: Awake; no lateralizing signs. SKIN: No Rash PSYCH; Flat affect Weight / BMI Weight Weight: 146.51 kg Body Mass Index (BMI) 49.1 ABG / Lab / Microbiology Data Result Diagrams: 11/10/22 05:20 11/10/22 05:20 Laboratory: Laboratory Results - last 24 hr 11/08/22 19:55: Diff Path Review Reviewed 11/09/22 11:27: POC Glucose 292 H 11/09/22 16:26: POC Glucose 146 H 11/09/22 21:52: POC Glucose 246 H 11/10/22 05:20: WBC 25.8 H, RBC 4.68, Hgb 14.3, Hct 45.0, MCV 96.2 H, MCH 30.6, MCHC 31.8 L, RDW Std Deviation 51.7 H, RDW Coeff of Trevor 14.6, Plt Count 475 H, MPV 10.4, Immature Gran % (Auto) 1.000 H, Neut % (Auto) 73.8 H, Lymph % (Auto) 18.4 L, [place] % (Auto) 6.6, Eos % (Auto) 0.0, Baso % (Auto) 0.2, Absolute Neuts (auto) 19.1 H, Absolute Lymphs (auto) 4.75 H, Nucleated RBC % 0, Diff Path Review February, Platelet Estimate SLT INC, Anisocytosis 2+, Macrocytosis 1+ 11/10/22 05:20: Sodium 136, Potassium 4.6, Chloride 103, Carbon Dioxide 31.0, Anion Gap 2 L, BUN 31 H, Creatinine 0.93, Estim Creat Clear Calc 81.72, Est GFR (MDRD) Af Amer 106, Est GFR (MDRD) Non-Af 87, BUN/Creatinine Ratio 33.2 H, Glucose 211 H, Calcium 9.3, Phosphorus 4.3, Magnesium 2.2, PSA Screen 0.09 11/10/22 05:20: Hemoglobin A1c 7.0 H 11/10/22 08:05: POC Glucose 212 H Microbiology: Microbiology 11/08/22 20:08 Nasal Secretion SARS-CoV-2 Antigen (Rapid) - Final D/C Instructions Discharge Diet: 1800 Calorie Control Diet Discharge Activity: Return to Normal Activity Call your doctor if you observe: Fever of 101 or Higher, Shortness of breath, Fainting spells and Chest pain Meaningful Use Info Meaningful Use Diagnoses (Choose all that apply): None applicable Discharge Plan Admission Admit Date/Time: 11/08/22 21:03 Attending Provider: Juan Powell [facility] Providers: Eddy Oliva Discharge Orders/Prescriptions Prescriptions: New doxycycline hyclate 100 mg capsule 100 mg PO BID Qty: 14 0RF prednisone 20 mg tablet 20 mg PO BID Qty: 10 0RF Continued clopidogrel 75 MG tablet 75 mg PO DAILY glimepiride 1 mg Tablet 1 mg PO DAILY budesonide-formoterol [Symbicort] 160-4.5 mcg/actuation Hfa Aerosol Inhaler 2 puff INHALATION BID pravastatin 40 mg tablet 40 mg PO QHS Label Comments: TAKE 1 TABLET BY MOUTH EVERY DAY AT BEDTIME metformin 1,000 mg tablet 1,000 mg PO BID Label Comments: TAKE 1 TABLET TWICE DAILY hydroxyzine HCl 25 mg tablet 25 mg PO QHS Label Comments: TAKE 1 TABLET BY MOUTH DAILY AT BEDTIME cyclobenzaprine 5 mg tablet 5 mg PO DAILY PRN (Reason: Spasms) Label Comments: TAKE 1 TABLET BY MOUTH DAILY NEEDED FOR MUSCLE PAIN bupropion HCl 150 mg tablet sustained-release 12 hr 150 mg PO BID Label Comments: taker 1 tablet by mouth once a day for 3 days, than one tablet in the morning and one tablet in the evening thereafter amlodipine 10 mg tablet 10 mg PO DAILY ergocalciferol (vitamin D2) 1,250 mcg (50,000 unit) capsule 1,250 mcg PO SA Label Comments: TAKE 1 CAPSULE BY MOUTH EVERY WEEK fenofibrate nanocrystallized 145 mg tablet 145 mg PO DAILY Label Comments: TAKE 1 CAPSULE BY MOUTH EVERY DAY quetiapine [Seroquel] 300 MG tablet 300 mg PO QHS potassium chloride [Klor-Con 10] 10 MEQ tablet extended release 20 meq PO DAILY docusate sodium [DOK] 100 MG capsule 100 mg PO DAILY PRN (Reason: Constipation) aspirin 81 MG tablet,chewable 81 mg PO DAILY@0800 hydrochlorothiazide 25 MG tablet 25 mg PO DAILY albuterol sulfate [Proventil HFA] 6.7 GM HFA aerosol inhaler 6.7 g IH PRN PRN (Reason: Wheezing) lisinopril 40 MG tablet 40 mg PO DAILY atenolol 50 MG tablet 50 mg PO BID [facility] - [facility] 1 Week Disposition Disposition (needs filled in before D/C Order can be placed): Home, Self Care Charges/Coding Visit Charges Inpatient E&M: 38231 Disch Hosp >30min
--- NOTE | 2022-11-12 11:35 | ECHOD_ITS ---
Reason For Study: CHF Procedure This was a 2D Doppler, Color Flow transthoracic echocardiogram. Exam performed portable in patient room. Left Ventricle Normal LV size. Mild concentric left ventricular hypertrophy. Left ventricular systolic function is normal. The left ventricular ejection fraction is 50 %. Stage 2 diastolic dysfunction. No regional wall motion abnormalities noted. Right Ventricle Normal RV size. Normal systolic function. Atria Normal left atrium. Normal right atrium. Mitral Valve Normal mitral valve. Tricuspid Valve Normal tricuspid valve. Aortic Valve Normal aortic valve. Pulmonic Valve Normal pulmonic valve. Great Vessels Normal aortic root. The pulmonary artery is normal size. Normal inferior vena cava. Pericardium/Pleural No pericardial effusion. MMode/2D Measurements & Calculations LVIDd: 4.9 cm IVSd: 1.5 cm LAV(MOD-sp4): 68.5 ml LVIDs: 2.5 cm LVPWd: 1.2 cm FS: 49.1 % LVAd ap4: 33.2 cm2 SV(MOD-sp4): 71.8 ml SV(sp4-el): 75.5 ml LVLd ap4: 8.6 cm EDV(MOD-sp4): 107.5 ml EDV(sp4-el): 108.9 ml LVAs ap4: 16.9 cm2 LVLs ap4: 7.2 cm ESV(MOD-sp4): 35.7 ml ESV(sp4-el): 33.4 ml EF(MOD-sp4): 66.8 % EF(sp4-el): 69.3 % LA A4 area: 22.3 cm2 LA dimension(2D): 4.9 cm Time Measurements MV dec time: 0.18 sec Doppler Measurements & Calculations MV E max corky: 89.3 cm/sec Lat Peak E' Corky: 10.2 cm/sec Med Peak E' Corky: 9.5 cm/sec MV A max corky: 68.4 cm/sec E/E' lat: 8.7 E/E' med: 9.4 MV E/A: 1.3 MV V2 max: 81.3 cm/sec Ao V2 max: 137.0 cm/sec MV max P.7 mmHg MV dec slope: 509.2 cm/sec2 Ao max P.6 mmHg MV V2 mean: 50.8 cm/sec Ao V2 mean: 94.1 cm/sec MV mean P.2 mmHg Ao mean P.1 mmHg MV V2 VTI: 25.7 cm Ao V2 VTI: 31.1 cm AV (velocity ratio): 0.99 LV V1 max: 140.7 cm/sec PA V2 max: 91.7 cm/sec LV V1 max P.0 mmHg PA V2 mean: 69.6 cm/sec LV V1 mean P.7 mmHg LV V1 mean: 88.6 cm/sec LV V1 VTI: 30.8 cm ECHO/Echo Complete Interpretation Summary Normal LV size. Left ventricular systolic function is normal. The left ventricular ejection fraction is 50 %. Mild concentric left ventricular hypertrophy. Stage 2 diastolic dysfunction. Ordering Physician: Juan Powell Referring Physician: JA OROPEZA Performed By: Rocio Morelos RCS
[2022-11-12] MEDS: Enoxaparin 40 MG/0.4 ML Syringe SC (12:46)
[2022-11-12 13:50] LABS: Bedside Glucose 290 mg/dL (74-106)
--- NOTE | 2022-11-12 15:38 | CASEMGMT ---
Pt qualifies for home oxygen. Ref[place] [facility] via [facility] at this time.
[2022-11-12 19:51] LABS: Bedside Glucose 280 mg/dL (74-106)
[2022-11-15 13:31] LABS: Pathologist Review Reviewed
== END 2022-11-12 19:20 | disposition home or self-care (01) | DRG 191 ==
LOC: ED 20:58 → MS3 21:18
PROVIDERS: Admitting Provider Family Medicine; Emergency Provider Emergency Medicine; Visit Provider Internal Medicine
DX: J44.1 Chronic obstructive pulmonary disease with (acute) exacerbation (principal); Z68.42 Body mass index [BMI] 45.0-49.9, adult; J98.11 Atelectasis; I11.0 Hypertensive heart disease with heart failure; E11.9 Type 2 diabetes mellitus without complications; I50.9 Heart failure, unspecified; E66.01 Morbid (severe) obesity due to excess calories; I25.10 Atherosclerotic heart disease of native coronary artery without angina pectoris; E78.5 Hyperlipidemia, unspecified; Z79.84 Long term (current) use of oral hypoglycemic drugs; Z79.02 Long term (current) use of antithrombotics/antiplatelets; Z79.51 Long term (current) use of inhaled steroids; Z79.82 Long term (current) use of aspirin; Z87.891 Personal history of nicotine dependence; Z95.5 Presence of coronary angioplasty implant and graft; Z86.16 Personal history of COVID-19; Z86.39 Personal history of other endocrine, nutritional and metabolic disease
CPT/HCPCS: 36415; 71045; 80048; 82962; 83036; 83735; 83880; 84100; 84153; 84484; 85025; 87811; 93005; 93306; 94640; 94762; 99252; 99284; 99406; J7050; A4216; G0103; G0463; J1940

== ENCOUNTER → 2022-11-23 | Outpatient (CLI) | payer MEDICARE, SELFPAY ==
--- NOTE | 2022-11-23 16:16 | RAD_ITS ---
STUDY: X-RAY - ORBITS REASON FOR EXAM: Male, 62 years old. PRE MRI CLEARANCE TECHNIQUE: 2 view(s) of the orbits were obtained. COMPARISON: None. FINDINGS: Normal bilateral orbits without a metallic orbital foreign body. Normal visualized facial bones. Normal paranasal sinuses. The soft tissue structures are unremarkable. RAD/Orbits for Foreign Body IMPRESSION: No demonstrated metallic orbital foreign body. The patient is cleared for an MRI examination. Electronically Signed: Judah Patten MD at 16:35 EST ,
--- NOTE | 2022-11-23 17:30 | MRI_ITS ---
STUDY: MRI LEFT MIDFOOT REASON FOR EXAM: Male, 62 years old. Left foot pain. TECHNIQUE: Standardized fat and water weighted pulse sequences were obtained in all 3 orthogonal planes. COMPARISON: None. FINDINGS: Normal talonavicular articulation. Normal calcaneocuboid articulation. Normal navicular-cuneiform articulations. Normal intercuneiform articulations. Normal first tarsometatarsal articulation. Normal Lisfranc ligament. Normal second and third tarsometatarsal articulations. Normal cuboid fourth and cuboid fifth tarsometatarsal articulation. Moderate arthrosis on the MTP and IP joints, most marked at the first MTP joint. First MTP joint effusion. Hammertoe deformities (coronal series 7 images 7-20). Normal tibialis anterior tendon. Normal extensor hallucis longus tendon. Normal extensor digitorum longus tendons. Normal peroneus longus tendon and distal insertion. Normal peroneus brevis tendon and distal insertion. Normal intrinsic muscles of the mid and forefoot region. Normal extensor digitorum brevis muscle. Dorsal and lateral subcutaneous soft tissue edema (axial series 9 images 16-32). 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 Dorsal and slightly lateral cutaneous soft tissue edema. No other abnormality present. Electronically Signed: Lc Guerra, at 14:05 EST ,
== END | disposition home or self-care (01) ==
LOC: MRI 16:02
PROVIDERS: Referring Provider Nurse Practitioner Family; Visit Provider Nurse Practitioner Family
DX: M12.572 Traumatic arthropathy, left ankle and foot (principal)
CPT/HCPCS: 70030; 73718

== ENCOUNTER → 2023-03-11 | Outpatient (CLI) | payer MEDICARE, SELFPAY ==
--- NOTE | 2023-03-15 06:58 | PFT ---
INTRODUCTION: The patient is a 63-year-old male that presents for pulmonary function studies secondary to a diagnosis of COPD. Respiratory therapy reported good patient effort. Bronchodilators were used during testing. INTERPRETATION: Forced expiration spirometry demonstrates the presence of a severe large airways obstructive ventilatory defect. There was no significant response to aerosolized bronchodilators. Spirograms are of good quality but do not plateau indicating slow emptying of the lungs. Body plethysmography was performed and revealed a decreased TLC to 4.3 L, 73% of predicted, indicative of a mild restrictive ventilatory impairment. Diffusing capacity by single breath CO was reduced to 59% of predicted. IMPRESSION: Irreversible severe mixed ventilatory defect with symmetric reduction in diffusing capacity.
== END | disposition home or self-care (01) ==
PROVIDERS: Referring Provider Internal Medicine; Visit Provider Internal Medicine
DX: J44.9 Chronic obstructive pulmonary disease, unspecified (principal)
CPT/HCPCS: 94060; 94726; 94729

== ENCOUNTER → 2023-03-17 | Outpatient (CLI) | payer MEDICARE, SELFPAY ==
--- NOTE | 2023-03-17 13:50 | CT_ITS ---
STUDY: LOW DOSE CT LUNG CANCER SCREENING REASON FOR EXAM: Male, 63 years old. Currents woke her. 50 pack-year history. RADIATION DOSAGE (If Supplied By Facility): CTDIvol = ( 4.02 ) mGy, DLP = ( 148.48 ) mGycm TECHNIQUE: No contrast was administered. Low dose technique was utilized (average mAS-38 and kVp 120). 1.25 mm axial source images with a slice interval of 1.25-mm were reconstructed in lung windows. 2.5 mm axial source images with a slice interval of 2.5-mm were reconstructed in lung windows. 5.0 mm axial source images with a slice interval of 5.0-mm were reconstructed in soft tissue windows. COMPARISON: Chest, November 10, 2022. CT of the chest, August 05, 2021. NODULES: Nodule #: 1 Density: Solid Lung location: Right upper lobe: Pleural-based Location in series: Series Number: 2 Image: 119 Size - D1 x D2 mm: 3 x 3 mm: 3 mm average diameter Margin: Smooth Shape: Round Calcification: No Fat: No Temporal comparison: Stable Nodule #: 3 Density: Solid Lung location: Right lower lobe: Pleural-based Location in series: Series Number: 2 Image: 125 Size - D1 x D2 mm: 313 mm: 3 mm average diameter Margin: Irregular Shape: Round Calcification: No Fat: No Temporal comparison: Stable Nodule #: 3 Density: Solid Lung location: Right middle lobe: 0.2 cm from pleura Location in series: Series Number: 2 Image: 136 Size - D1 x D2 mm: 6 x 3 mm: 5 mm average diameter Margin: Smooth Shape: Oval Calcification: No Fat: No Temporal comparison: Stable Total lung nodules (excluding granulomas): 3 Emphysema: Minimal emphysematous changes. Stable scarring in the lingula. Endobronchial lesion: None Aorta: Minimal stable atherosclerotic changes. CORONARY ARTERIES: Coronary artery calcification are present and stable. Heart: Normal Pulmonary artery: Normal Mediastinal nodes: None Other chest and abdominal findings: Mild degenerative changes. CT/Low Dose CT Lung Screening IMPRESSION: Lung-RADS category 1 - Continue annual screening with LDCT in 12 months. IMPORTANT NOTES FOR USE: ACR Lung-RADS Version 1.1 Assessment Categories Release Date: 2018 Category: Coded 0-4 bases on nodule(s) with highest degree of suspicion. Negative screen is defined as categories 1 and 2; a positive screen is defined as categories 3 and 4. Category 3 and 4A nodules that are unchanged on interval CT should be coded as category 2, and individuals returned to screening in 12 months. Category 4X: Category 3 or 4 nodules with additional imaging findings that increase the suspicion of lung cancer, such as spiculation, GGN that doubles in size in 1 year, enlarged lymph notes, etc. Category Modifiers: S (significant finding unrelated to lung cancer) Electronically Signed: Solomon Florentino DO at 22:50 EDT Reading Location ID and State: [address] [place] [address] Tel [phone], Service support ,
== END | disposition home or self-care (01) ==
LOC: CT 13:43
PROVIDERS: Referring Provider Internal Medicine; Visit Provider Internal Medicine
DX: R91.1 Solitary pulmonary nodule (principal); J44.9 Chronic obstructive pulmonary disease, unspecified; F17.210 Nicotine dependence, cigarettes, uncomplicated
CPT/HCPCS: 71271

== ENCOUNTER → 2024-06-26 | Outpatient (CLI) | payer MEDICARE, SELFPAY ==
[2024-06-26 13:07] LABS: Absolute Lymphocyte Count 7.36 X10^3/uL (0.83-4.51); Absolute Neutrophil Count 9.6 X10^3/uL (2.0-7.7); Basophil# 0.08 X10^3/uL; Basophil% 0.4 % (0-1); Eosinophil# 0.14 X10^3/uL; Eosinophils% 0.7 % (0-5); Hematocrit 41.5 % (40-54); Hemoglobin 13.5 g/dL (13.0-16.5); Lymphocyte # 7.36 X10^3/ul (0.83-4.51); Lymphocyte % 38.8 % (19-41); Mean Corp Hgb Conc 32.5 g/dL (32-36); Mean Corpuscular Hgb 30.1 pg (27.0-32.0); Mean Corpuscular Volume 92.4 fL (80-94); Mean Platelet Vol. 9.8 fl (6.2-12.0); NRBC Flagged by Analyzer 0 % (0-5); Neutrophil # 9.62 X10^3/uL (2.7-7.7); Neutrophil % 50.6 % (47-70); POSITIVE DIFFERENTIAL YES; Platelet Count 561 K/mm3 (150-450); RBC Distribution Width SD 51.2 fl (35.1-43.9); Red Blood Count 4.49 M/mm3 (4.6-6.2)
[2024-06-26 13:10] LABS: Differential Indicated SCAN CRITERIA MET
[2024-06-26 13:37] LABS: Vitamin D,25 Hydroxy 28.4 ng/mL
[2024-06-26 13:40] LABS: Differential Comment SCANNED
[2024-06-26 14:44] LABS: Microalbumin,Random Urine 32.8 mg/L (NO RANGE EST.)
[2024-06-26 15:03] LABS: ALB/GLOB Ratio 0.7 RATIO (0.9-2.4); AST(SGOT) 27 U/L (15-37); Alanine Aminotransfer ALT/SGPT 38 U/L (16-61); Alkaline Phosphatase 52 U/L (45-117); Anion Gap 8 (5-15); BUN 10 mg/dL (7-18); BUN/Creat Ratio 11.1 RATIO (10-20); Calcium,Total 9.3 mg/dL (8.5-10.1); Chloride 103 mmol/L (98-107); Cholesterol 146 mg/dL (200); EST Glomerular Filtration Rate 90 mL/min (>60); Est Glom Filt Rate - Afr Amer 109 mL/min (>60); Globulin 4.2 g/dL (2.2-4.2); Glucose 109 mg/dL (74-106); High Density Lipoprotein 38 mg/dL; PSA,Total - Annual Screen 0.12 ng/mL (0.00-4.00); Potassium 3.7 mmol/L (3.5-5.1); Protein, Total 7.2 g/dL (6.4-8.2); Sodium Level 139 mmol/L (136-145); Triglycerides 142 mg/dL; Very Low Density Lipoprotein 28 mg/dL (5-40)
[2024-06-28 08:30] LABS: Pathologist Review Reviewed
== END | disposition home or self-care (01) ==
LOC: VSLAB 11:58
PROVIDERS: PCP Nurse Practitioner Family; Visit Provider Nurse Practitioner Family
DX: E11.9 Type 2 diabetes mellitus without complications (principal); I10 Essential (primary) hypertension; E78.5 Hyperlipidemia, unspecified; Z12.5 Encounter for screening for malignant neoplasm of prostate; E55.9 Vitamin D deficiency, unspecified
CPT/HCPCS: 36415; 80053; 80061; 82043; 82306; 84153; 84443; 85025; G0103

== ENCOUNTER 2024-08-20 15:52 | Emergency (ER) | payer MEDICARE, SELFPAY ==
[2024-08-20 15:53] VITALS: BP 149/67; PULSE 73; RESP 16; TEMP 36.6; O2SAT 96; BMI 46.1
--- NOTE | 2024-08-20 16:23 | EX.ED.GUMALE ---
HPI History of Present Illness Chief Complaint: Male Pain/Injury Detail of Chief Complaint: Lump and enlarged scrotum/testicle on the right Informant: patient Pain Onset: Days Context: Sudden Onset Timing: Continuous Current Severity: Mild Maximum Severity: Moderate Worsened by: Nothing Relieved by: Nothing Appearance Lesion(s): No Genital Edema: No Penile Discharge Genital Discharge Amount: None Urinary Symptoms Genitourinary Symptoms: No Symptoms Related History Sexually: Inactive Narrative Narrative: Patient is a 64-year-old male with history of diabetes, hyperlipidemia, hypertension, thrombocytosis status post splenectomy and appendectomy who presents because he felt a lump on the right side of his scrotum when he wiped this past weekend. He contacted his doctor. There is no callback. He was concerned because of the swelling and tenderness as well. He denies fever, chills night sweats. Has not checked his blood sugar in some time. Does endorse thirst, dry mouth. He denies increased urination. If anything has had decreased urination. He endorses lightheadedness with standing. He denies antibiotic allergies. Denies headache, visual, ocular auditory symptoms. He denies cardiac respiratory symptoms. He denies abdominal pain, nausea, vomiting or diarrhea. Denies constipation. Prior similar symptoms: No Recent Illness/Hospitalization: No PFSH PFSH Medical History Thrombocytosis COPD, group C, by GOLD 2013 classification Lung nodule seen on imaging study Hypo-osmolality and hyponatremia Leukocytosis Moderate recurrent major depression Tobacco user Body mass index (BMI) greater than 40 Hyperlipemia Knee pain Sleep apnea Diabetes mellitus, type 2 Diabetes mellitus History of coronary artery disease CAD (coronary artery disease) Anxiety and depression Myocardial infarct, old Nicotine dependence COPD (chronic obstructive pulmonary disease) Vitamin D deficiency Hypertension Home Medications ?Medication ?Instructions ?Recorded ?Last Taken ?Type atenolol 50 mg tablet 50 mg PO BID BP 02/18/14 11/07/22 History hydrochlorothiazide 25 mg tablet 25 mg PO DAILY FLUID 02/18/14 11/07/22 History lisinopril 40 mg tablet 40 mg PO DAILY BP 02/18/14 11/07/22 History potassium chloride 10 mEq 20 meq PO DAILY SUPPLEMENT 02/18/14 11/08/22 History tablet,extended release (Klor-Con) quetiapine 300 mg tablet (Seroquel) 300 mg PO QHS MOOD 02/18/14 11/07/22 History clopidogrel 75 mg tablet 75 mg PO DAILY BLOOD THINNER 07/07/17 11/08/22 History cyclobenzaprine 5 mg tablet 5 mg PO DAILY PRN Spasms 06/22/22 11/08/22 History metformin 1,000 mg tablet 1,000 mg PO BID DM 06/22/22 11/07/22 History pravastatin 40 mg tablet 40 mg PO QHS CHOLESTEROL 06/22/22 11/07/22 History amlodipine 10 mg tablet 10 mg PO DAILY HTN 11/08/22 11/08/22 History ergocalciferol (vitamin D2) 1,250 1,250 mcg PO SA SUPPLEMENT 11/08/22 11/06/22 History mcg (50,000 unit) capsule fenofibrate nanocrystallized 145 145 mg PO DAILY TRIGLYCERIDES 11/08/22 11/07/22 History mg tablet albuterol sulfate 90 mcg/actuation 2 puff inhalation .Q4-6 PRN 03/03/23 Unknown Rx aerosol inhaler (Proventil HFA) Wheezing #8.5 grams glimepiride 1 mg tablet 2 mg PO DAILY DM 07/19/24 Unknown History hydroxyzine HCl 25 mg tablet 25 mg PO QHS PRN SLEEP 07/19/24 Unknown History ibuprofen 400 mg tablet 800 mg PO Q8H PRN pain 07/19/24 Unknown History aspirin 81 mg tablet,delayed 81 mg PO QDAY 07/31/24 Unknown History release budesonide 160 mcg-glycopyr 9 2 inh inhalation BID 07/31/24 Unknown History mcg-formot 4.8 mcg/actuation HFA inhaler (Breztri Aerosphere) glimepiride 2 mg tablet 2 mg PO DAILY 08/20/24 Unknown History Allergy/AdvReac Type Severity Reaction Status Date / Time No Known Allergies Allergy Verified 08/20/24 15:53 Family History Father CAD (coronary artery disease) Hypertension Heart disease Myocardial infarction Fatal [place] age 70. Brother CAD (coronary artery disease) Hypertension Heart disease Myocardial infarction [place] age 48. Mother Cancer Aunt Alzheimers disease Surgical History Post-splenectomy Hx of appendectomy S/P urological surgery History of splenectomy Stented coronary artery Social History household members: none housing: apartment number of children: 1 current occupational status: disabled pets and animals: No Smoking Status: Current every day smoker tobacco type: cigarettes Tobacco: How many years used: 40 alcohol intake: never substance use type: does not use what type of physical activity do you participate in: none seatbelt use: always ROS ROS ED Constitutional Constitutional ED: Denies chills, fever(s), subjective or sweats Eyes Eyes: Denies blurry vision or change in vision ENT ENT ED: Denies ear pain, rhinorrhea or sore throat Cardiovascular Cardiovascular: Denies chest pain, orthopnea, palpitations, paroxysmal nocturnal dyspnea or racing heartbeat Respiratory/Chest Respiratory/Chest: Reports dyspnea, dyspnea on exertion and other Details: Patient states his dyspnea is due to COPD. He states he is at baseline. ; Denies cough, orthopnea or paroxysmal nocturnal dyspnea Gastrointestinal Gastrointestinal: Denies abdominal pain, nausea or vomiting Genitourinary Genitourinary ED: Reports other Details: Scrotal swelling, bump and pain. ; Denies dysuria, hematuria or urinary frequency Musculoskeletal Musculoskeletal: Denies arthralgias, back pain or myalgias Integumentary Denies abscess or rash Neurologic Neurologic: Denies headache(s) or paresthesias Endocrine Endocrinology: Denies polydipsia, polyphagia or polyuria Hematologic/Lymphatic Hematologic/Lymphatic: Denies easy bleeding or easy bruising EXAM Physical Exam Const Vital Signs: 08/20/24 15:53 08/20/24 19:53 Temperature 98 F Temperature Source Oral Pulse Rate 73 71 Respiratory Rate 16 20 H Blood Pressure 149/67 H 144/51 H Blood Pressure Mean 94 82 Pulse Ox 96 93 Oxygen Delivery Method Room Air Nasal Cannula Oxygen Flow Rate (L/min) 4 Positive well nourished and well developed Constitutional Narrative: BMI is 46.1. Patient is breathing heavily. States this is his normal breathing. States he has significant COPD. General Appearance ED: well developed; Negative for pallor HEENT Reports dry mucous membranes normocephalic and atraumatic Mouth ED: Yes dry mucous membranes Mouth: dry mucous membranes Eyes PERRL and EOMs intact bilaterally General Eye ED: Negative for pale conjunctiva or scleral icterus Neck no lymphadenopathy, supple and no JVD Resp No normal respiratory effort and No clear to auscultation bilaterally Resp Narrative: And inspiratory rales at the bases. There is decreased air movement with increased expiratory phase. There is no wheezing noted at this time. Cardio regular rate, regular rhythm, S1 normal heart sound, S2 normal heart sound and no murmurs GI non-tender, non-distended and no masses Auscultation: normoactive bowel sounds Palpation: soft no CVA tenderness Narrative: Patient's scrotum is swollen. There is redness on the right side. There may be an abscess at the base of the scrotum. He has no obvious kiana lymphadenopathy. This is difficult to assess because of body habitus. The right testicle is enlarged. There is an area of induration and firmness. There is a small area where there may be an abscess. Difficult to see patient's penis because of body habitus. Back/Spine no CVA tenderness Thoracic Spine / Upper Back: Negative for thoracic spinal tenderness Lumbar Spine / Lower Back: Negative for lumbar spinal tenderness Extremity Extremity Narrative: Stigmata PAD. Neuro oriented x3, CN's II-XII intact bilaterally and moves all extremities Sensorium / Orientation: alert Psych mental status grossly normal Skin General Skin Exam: Negative for jaundice or pallor Sepsis Attestation Date exam was performed: 08/20/24 Time exam was performed: 20:34 Possible Source of Sepsis: Skin/soft tissue Sepsis Organ Dysfunction Criteria Present: Lactic Acid > 2 mmol/L Supportive Findings: Patient was started on Unasyn and vancomycin. Since lactate was elevated blood cultures were obtained. Patient did not receive fluids since his lactate is not above 4 and he is not hemodynamically unstable. Sepsis Note Date exam was performed: 08/20/24 Time exam was performed: 20:34 Sepsis Attestation: Sepsis re-evaluation was performed MDM MDM MDM Narrative Medical decision making narrative: Patient's history and physical not consistent with torsion. Concern patient has scrotal abscess. He has no complaint of rectal pain there is no lesions noted in the perineum or anal area which would raise concern for Amanuel's gangrene. Will obtain BMP to assess glucose, CO2 anion gap and electrolytes as well as renal function. CBC to assess white count differential. Lactate was added as well because of concern for infection. He does not meet SIRS criteria based on vital signs. CT of the pelvis with IV contrast was obtained. This to evaluate his scrotum and perineal area. Since there is a shortage on blood cultures blood cultures were not ordered at this time. If he meets criteria for severe sepsis with organ dysfunction we will obtain blood cultures. At this point I do not feel antibiotics are required emergently. Lab Data Attestation: I reviewed the patient's lab results. Lab results narrative: White count is elevated 20.7 thousand with no shift. Review of prior records in case patient's white count has been elevated for some time. Comprehensive metabolic panel is remarkable for a glucose of 113 with a normal CO2 and anion gap. Renal function is normal. Lactate is elevated 2.5. Because of the elevated lactate blood cultures were obtained prior to administration of antibiotics. Patient was treated with Unasyn and vancomycin. Clindamycin was not added because at this time I do not believe patient has Amanuel's gangrene. Labs: Laboratory Results - last 24 hr 08/20/24 16:36 WBC 20.7 H RBC 4.29 L Hgb 12.9 L Hct 40.2 MCV 93.7 MCH 30.1 MCHC 32.1 RDW Std Deviation 53.6 H RDW Coeff of Trevor 15.7 H Plt Count 477 H MPV 10.0 Immature Gran % (Auto) 0.500 Neut % (Auto) 59.4 Lymph % (Auto) 28.8 [place] % (Auto) 9.9 Eos % (Auto) 1.2 Baso % (Auto) 0.2 Absolute Neuts (auto) 12.3 H Absolute Lymphs (auto) 5.96 H Nucleated RBC % 0 Differential Comment Diff Path Review May foll Platelet Estimate ADEQUATE Plt Morphology Comment LARGE RBC Morphology NORM C+C Sodium 137 Potassium 3.7 Chloride 102 Carbon Dioxide 29.0 Anion Gap 6 BUN 13 Creatinine 0.94 Estim Creat Clear Calc 110.76 Est GFR (MDRD) Af Amer 104 Est GFR (MDRD) Non-Af 86 BUN/Creatinine Ratio 13.8 Glucose 113 H Lactic Acid 2.5 H* Calcium 9.6 Total Bilirubin 0.50 AST 21 ALT 34 Alkaline Phosphatase 56 Total Protein 7.5 Albumin 3.2 Globulin 4.3 H Albumin/Globulin Ratio 0.7 L Radiography Diagnostic Testing: Clinical Impression(s) from Imaging Studies Pelvis CT 08/20/24 17:48 IMPRESSION: 1. Scrotal wall soft tissue swelling, asymmetric, greater on the right. Also at least mild right hydrocele. Presumably due to cellulitis. No soft tissue gas suggest meche tissue necrosis at this time. No perineal spread of inflammation. 2. Well-circumscribed cystic lesion superior to the right testis is suspected to be large epididymal cyst but early abscess cannot be excluded in the appropriate clinical setting. Consider scrotal ultrasound if it is thought to be indicated. 3. Mild fat-containing bilateral inguinal hernias, no strangulation. 4. Appendectomy. 5. Partially included lower kidneys and bilateral partially included renal cysts, no visible complex masses are included. 6. Advanced atherosclerotic-arteriosclerotic disease, especially peripheral vascular disease. Electronically Signed: Shayy Bermudez MD at 19:57 EDT , Since there is concern for abscess and there is no urologist on-call and [place] patient was asked where he would like to be transferred to. He states he has been to [facility] in the past. He would like to go back to [facility]. Will have assistant corporate secretary contact nurse at transfer center and make arrangements for admission to [facility]. Treatment and Re-Evaluation Narrative: Spoke with the transfer nurse. She contacted Dr. Peña the urologist. Spoke with urologist. Would like admitted to medicine. Spoke to Dr. Funes. Dr. Funes excepted. Discharge Plan Triage Chief Complaint: Male Pain/Injury ED Provider: Brandon Moyer Dx/Rx/DC Orders Clinical Impression: Cellulitis of scrotum, Acute hydrocele, Abscess, Acidosis, lactic, Body mass index (BMI) greater than 40, History of diabetes mellitus, Hyperlipemia, Leukocytosis, Post-splenectomy Prescriptions: No Action albuterol sulfate [Proventil HFA] 90 mcg/actuation HFA aerosol inhaler 2 puff inhalation .Q4-6 PRN (Reason: Wheezing) Qty: 8.5 8RF Breztri Aerosphere 160-9-4.8 mcg/actuation HFA aerosol inhaler 2 inh inhalation BID aspirin 81 mg tablet,delayed release (DR/EC) 81 mg PO QDAY ibuprofen 400 mg tablet 800 mg PO Q8H PRN (Reason: pain) clopidogrel 75 MG tablet 75 mg PO DAILY pravastatin 40 mg tablet 40 mg PO QHS Patient Comments: TAKE 1 TABLET BY MOUTH EVERY DAY AT BEDTIME metformin 1,000 mg tablet 1,000 mg PO BID Patient Comments: TAKE 1 TABLET TWICE DAILY cyclobenzaprine 5 mg tablet 5 mg PO DAILY PRN (Reason: Spasms) Patient Comments: TAKE 1 TABLET BY MOUTH DAILY NEEDED FOR MUSCLE PAIN glimepiride 1 mg tablet 2 mg PO DAILY hydroxyzine HCl 25 mg tablet 25 mg PO QHS PRN (Reason: SLEEP) Patient Comments: TAKE 1 TABLET BY MOUTH DAILY AT BEDTIME amlodipine 10 mg tablet 10 mg PO DAILY ergocalciferol (vitamin D2) 1,250 mcg (50,000 unit) capsule 1,250 mcg PO SA Patient Comments: TAKE 1 CAPSULE BY MOUTH EVERY WEEK fenofibrate nanocrystallized 145 mg tablet 145 mg PO DAILY Patient Comments: TAKE 1 CAPSULE BY MOUTH EVERY DAY glimepiride 2 mg tablet 2 mg PO DAILY quetiapine [Seroquel] 300 MG tablet 300 mg PO QHS potassium chloride [Klor-Con 10] 10 MEQ tablet extended release 20 meq PO DAILY hydrochlorothiazide 25 MG tablet 25 mg PO DAILY lisinopril 40 MG tablet 40 mg PO DAILY atenolol 50 MG tablet 50 mg PO BID Primary Care Provider: Anita Coreas Referrals: Anita Coreas, STUDENT LIFE COORDINATOR-C [Primary Care Provider] - Print Language: Guinean Disposition Disposition: Acute Care Hospital Discharge Location: [facility]
[2024-08-20] MEDS: Morphine 2 MG/ML Syringe IV (16:31)
[2024-08-20] MEDS: 0.9% Normal Saline (1000mL) 1,000 ML 1000 ML IV (16:31)
[2024-08-20] MEDS: Ondansetron 4 MG/2 ML Vial IV (16:31)
[2024-08-20 16:51] LABS: Absolute Lymphocyte Count 5.96 X10^3/uL (0.83-4.51); Absolute Neutrophil Count 12.3 X10^3/uL (2.0-7.7); Basophil# 0.05 X10^3/uL; Basophil% 0.2 % (0-1); Eosinophil# 0.24 X10^3/uL; Eosinophils% 1.2 % (0-5); Hematocrit 40.2 % (40-54); Hemoglobin 12.9 g/dL (13.0-16.5); Lymphocyte # 5.96 X10^3/ul (0.83-4.51); Lymphocyte % 28.8 % (19-41); Mean Corp Hgb Conc 32.1 g/dL (32-36); Mean Corpuscular Hgb 30.1 pg (27.0-32.0); Mean Corpuscular Volume 93.7 fL (80-94); Monocyte# 2.04 X10^3/uL; Monocyte% 9.9 % (0-10); NRBC Flagged by Analyzer 0 % (0-5); Neutrophil % 59.4 % (47-70); POSITIVE DIFFERENTIAL YES; POSITIVE MORPHOLOGY YES; Platelet Count 477 K/mm3 (150-450); RBC Distribution Width CV 15.7 % (11.6-14.6); RBC Distribution Width SD 53.6 fl (35.1-43.9); Red Blood Count 4.29 M/mm3 (4.6-6.2); White Blood Count 20.7 K/mm3 (4.4-11.0)
[2024-08-20 17:05] LABS: ALB/GLOB Ratio 0.7 RATIO (0.9-2.4); AST(SGOT) 21 U/L (15-37); Alanine Aminotransfer ALT/SGPT 34 U/L (16-61); Albumin, Serum 3.2 g/dL (3.2-5.0); Alkaline Phosphatase 56 U/L (45-117); Anion Gap 6 (5-15); BUN 13 mg/dL (7-18); BUN/Creat Ratio 13.8 RATIO (10-20); Calcium,Total 9.6 mg/dL (8.5-10.1); Chloride 102 mmol/L (98-107); Creatinine, Serum 0.94 mg/dL (0.70-1.30); EST Glomerular Filtration Rate 86 mL/min (>60); Est Glom Filt Rate - Afr Amer 104 mL/min (>60); Estimated Creatinine Clearance 110.76 ml/min; Globulin 4.3 g/dL (2.2-4.2); Glucose 113 mg/dL (74-106); Potassium 3.7 mmol/L (3.5-5.1); Protein, Total 7.5 g/dL (6.4-8.2); Sodium Level 137 mmol/L (136-145)
[2024-08-20 17:13] LABS: Differential Indicated SCAN CRITERIA MET
[2024-08-20 17:27] LABS: Platelet Estimate ADEQUATE (ADEQ); Platelet Morphology LARGE; Red Cell Morphology NORM C+C NORMAL (NORM C&C)
[2024-08-20 17:31] LABS: Lactic Acid 2.5 mmol/L (0.4-1.9)
--- NOTE | 2024-08-20 17:48 | CT_ITS ---
EXAM: CT PELVIS WITH INTRAVENOUS CONTRAST CLINICAL INDICATION: Scrotal pain, cellulitis versus abscess TECHNIQUE: Helically acquired images were obtained of the pelvis with intravenous contrast. This CT exam was performed using one or more of the following dose reduction techniques: automated exposure control, adjustment of the mA and/or kV according to patient size, and/or use of iterative reconstruction technique. RADIATION DOSE: CTDIvol = 28.21 x2 mGy, DLP = 1704.65 mGy-cmContrast: IV 100mL Isovue-300 COMPARISON: None provided. Abdomen and pelvis CT report from March 03, 2010 was provided, images not provided. FINDINGS: KIDNEYS AND URETERS: Multiple and bilateral renal cysts are included but the kidneys and renal cysts are not fully included, at least 3 cysts at the right lower pole and at least one at the left lower pole. No complex-appearing lesions are included but most of the kidneys are not included. BOWEL: Unremarkable as visualized. No bowel distention. No focal inflammatory change. No significant distal descending colon or sigmoid diverticulosis. APPENDIX: Appendectomy sutures are noted. INTRAPERITONEAL SPACE: Unremarkable. No ascites or other fluid collection. No free air. BLADDER: Almost collapsed urinary bladder. REPRODUCTIVE: Unremarkable as visualized. No significant prostatomegaly, prostate 4.6 cm x 3.9 cm x 3.9 cm. BONES/JOINTS: Moderate circumferential aortoiliac arterial sclerotic calcifications and fairly high-grade common and superficial femoral artery arterial calcifications, there appears to be fairly high-grade stenosis at the origin of the right SFA, not well evaluated on unenhanced exam, probably also multifocal fairly high-grade bilateral SFA stenoses in the proximal thighs. SOFT TISSUES: There is asymmetric scrotal wall thickening, bilateral but greater on the right, and appears to be cyst or loculated fluid in the superior right scrotum, uncertain if this is epididymal cyst or early abscess but in the general expected region of the epididymal head, at least 3.1 cm x 2.4 cm x 2.7 cm, with no gas bubbles and relatively thin but discernible wall. Also small right hydrocele. And soft tissue stranding in the more superior fat extending towards but not into the perineum. Mild fat-containing bilateral inguinal hernias. No soft tissue stranding at the proximal or mid herniated fat. LYMPH NODES: There are several fairly small bilateral inguinal lymph nodes, the largest on the right roughly 3.1 cm x 1.7 cm and on the left roughly 3.7 cm x 1.9 cm. Most have small fatty mae. No intrapelvic-retroperitoneal significant adenopathy. Exam includes to the level of the distal infrarenal aorta. CT/Pelvis WITH IV Contrast IMPRESSION: 1. Scrotal wall soft tissue swelling, asymmetric, greater on the right. Also at least mild right hydrocele. Presumably due to cellulitis. No soft tissue gas suggest meche tissue necrosis at this time. No perineal spread of inflammation. 2. Well-circumscribed cystic lesion superior to the right testis is suspected to be large epididymal cyst but early abscess cannot be excluded in the appropriate clinical setting. Consider scrotal ultrasound if it is thought to be indicated. 3. Mild fat-containing bilateral inguinal hernias, no strangulation. 4. Appendectomy. 5. Partially included lower kidneys and bilateral partially included renal cysts, no visible complex masses are included. 6. Advanced atherosclerotic-arteriosclerotic disease, especially peripheral vascular disease. Electronically Signed: Shayy Bermudez MD at 19:57 EDT ,
[2024-08-20] MEDS: Ampicillin/Sulbactam 3 GM in 0.9% Normal Saline (100mL MB+) 100 ML IV (18:21)
--- NOTE | 2024-08-20 19:44 | ED.RN ---
RN called to check on CT scan result delay
[2024-08-20 19:53] VITALS: BP 144/51; PULSE 71; RESP 20; O2SAT 93
[2024-08-20] MEDS: Vancomycin HCl 2,000 MG in 0.9% Normal Saline (500mL Bag) 500 ML 250 MG IV (20:03)
[2024-08-20 20:43] LABS: Reflex Lactate? Y
--- NOTE | 2024-08-20 21:05 | ED.RN ---
PT ACCEPTED [address] N2N [id number] [facility] [id number]
[2024-08-20 21:32] LABS: Lactic Acid 0.8 mmol/L (0.4-1.9)
[2024-08-20 23:00] VITALS: BP 139/70; PULSE 74; RESP 24; O2SAT 95
[2024-08-21 00:38] VITALS: BP 125/55; PULSE 75; RESP 16; TEMP 36.7; O2SAT 93
[2024-08-21 13:11] LABS: Pathologist Review Reviewed
== END 2024-08-21 00:40 | disposition short-term general hospital (02) ==
PROVIDERS: Emergency Provider Emergency Medicine; PCP Nurse Practitioner Family; Visit Provider Emergency Medicine
DX: N49.2 Inflammatory disorders of scrotum (principal); J44.9 Chronic obstructive pulmonary disease, unspecified; E11.51 Type 2 diabetes mellitus with diabetic peripheral angiopathy without gangrene; N43.3 Hydrocele, unspecified; L02.91 Cutaneous abscess, unspecified; I10 Essential (primary) hypertension; E78.5 Hyperlipidemia, unspecified; I25.10 Atherosclerotic heart disease of native coronary artery without angina pectoris; E87.20 Acidosis, unspecified; N50.89 Other specified disorders of the male genital organs; F17.210 Nicotine dependence, cigarettes, uncomplicated; Z79.82 Long term (current) use of aspirin; Z79.84 Long term (current) use of oral hypoglycemic drugs; Z79.899 Other long term (current) drug therapy; Z90.81 Acquired absence of spleen; Z90.49 Acquired absence of other specified parts of digestive tract
CPT/HCPCS: 72193; 80053; 83605; 85025; 87040; 96361; 96365; 96366; 96367; 96375; 99284; J7030; J7040; Q9967; A4216; J0295; J2405